=== PATIENT | female | born 1960 | race Caucasian/White ===

== ENCOUNTER 2023-04-13 06:25 | Outpatient (OUT) | payer BC, SELFPAY ==
[2023-04-13 06:31] LABS: Basophils Percent Auto 0.6 % (0.2-2.0); Eosinophils Absolute Auto 0.1 10^3/uL (0.0-0.7); Eosinophils Percent Auto 2.5 % (0.9-7.0); Hematocrit 42.3 % (36.0-48.0); Immature Granulocytes Abs Auto 0.01 10^3/uL (0.00-0.03); Immature Granulocytes Pct Auto 0.2 % (0.0-0.5); Lymphocytes Absolute Auto 1.7 10^3/uL (1.2-3.8); Lymphocytes Percent Auto 33.3 % (20.5-60.0); Mean Corpuscular HGB Conc 33.1 g/dL (29.9-35.2); Mean Corpuscular Hemoglobin 30.6 pg (26.7-34.0); Mean Corpuscular Volume 92.6 fL (81.0-99.0); Mean Platelet Volume 9.8 fL (9.5-13.5); Monocytes Absolute Auto 0.4 10^3/uL (0.3-0.8); Monocytes Percent Auto 8.5 % (1.7-12.0); Neutrophils Absolute Auto 2.8 10^3/uL (1.4-6.5); Neutrophils Percent Auto 54.9 % (43.0-75.0); Platelet Count 223 10^3/uL (150-450); Red Blood Count 4.57 10^6/uL (4.20-5.40); Red Cell Distribution Width 12.5 % (11.0-15.0); White Blood Count 5.2 10^3/uL (4.0-11.0)
[2023-04-13 06:47] LABS: Estimated Average Glucose 114 mg/dL; Glycohemoglobin A1C 5.6 % (4.5-6.2)
[2023-04-13 07:03] LABS: Alanine Aminotransferase 46 U/L (14-59); Albumin Globulin Ratio 1.1; Albumin Level 3.8 g/dL (3.4-5.0); Alkaline Phosphatase 46 U/L (46-116); Anion Gap 11.4; Aspartate Amino Transferase 27 U/L (15-37); BUN Creatinine Ratio 31.1; Bilirubin Total 0.4 mg/dL (0.2-1.0); Calcium 9.2 mg/dL (8.5-10.1); Carbon Dioxide 28.8 mmol/L (21.0-32.0); Chloride 104 mmol/L (98-107); Chol HDL Ratio 2.1; Cholesterol 159 mg/dL (<=200); Estimated GFR (African America >60 (>=60); Estimated GFR (Non-African Ame >60 (>=60); Globulin 3.4 g/dL; Glucose 110 mg/dL (74-106); HDL Cholesterol 76 mg/dL (40-60); Potassium 4.2 mmol/L (3.5-5.1); Sodium 140 mmol/L (136-145); Thyroid Stimulating Hormone 1.478 uIU/mL (0.358-3.740); Total Protein 7.2 g/dL (6.4-8.2); Triglycerides 37 mg/dL (<=150); VLDL CHOLESTEROL 7.4 mg/dL
== END 2023-04-13 06:26 | disposition home or self-care (01) ==
LOC: LAB 06:25
PROVIDERS: PCP Internal Medicine; Visit Provider Internal Medicine
DX: Z00.00 Encounter for general adult medical examination without abnormal findings (principal)
CPT/HCPCS: 36415; 80053; 80061; 83036; 84443; 85025

== ENCOUNTER 2023-05-15 21:59 | Outpatient (REF) | payer BC, SELFPAY ==
[2023-05-19 09:13] LABS: Age Gdln ACOG Testing Note (.); HPV Aptima Negative (Negative); IGP, Aptima HPV, rfx 16/18,45 Note (.)
== END 2023-05-15 22:00 | disposition home or self-care (01) ==
LOC: LAB 21:59
PROVIDERS: PCP Internal Medicine; Visit Provider Obstetrics & Gynecology
DX: Z01.419 Encounter for gynecological examination (general) (routine) without abnormal findings (principal)
CPT/HCPCS: 87624; G0145

== ENCOUNTER 2024-02-26 05:54 | Outpatient (OUT) | payer BC, SELFPAY ==
[2024-02-26 06:57] LABS: Basophils Absolute Auto 0.1 10^3/uL (0.0-0.1); Basophils Percent Auto 1.1 % (0.2-2.0); Eosinophils Absolute Auto 0.1 10^3/uL (0.0-0.7); Eosinophils Percent Auto 2.6 % (0.9-7.0); Hematocrit 40.5 % (36.0-48.0); Hemoglobin 13.1 g/dL (12.0-16.0); Immature Granulocytes Abs Auto 0.01 10^3/uL (0.00-0.03); Immature Granulocytes Pct Auto 0.2 % (0.0-0.5); Lymphocytes Absolute Auto 1.5 10^3/uL (1.2-3.8); Lymphocytes Percent Auto 33.8 % (20.5-60.0); Mean Corpuscular HGB Conc 32.3 g/dL (29.9-35.2); Mean Corpuscular Hemoglobin 30.3 pg (26.7-34.0); Mean Corpuscular Volume 93.8 fL (81.0-99.0); Mean Platelet Volume 10.2 fL (9.5-13.5); Monocytes Absolute Auto 0.4 10^3/uL (0.3-0.8); Monocytes Percent Auto 8.8 % (1.7-12.0); Neutrophils Absolute Auto 2.4 10^3/uL (1.4-6.5); Neutrophils Percent Auto 53.5 % (43.0-75.0); Platelet Count 231 10^3/uL (150-450); Red Blood Count 4.32 10^6/uL (4.20-5.40); Red Cell Distribution Width 12.9 % (11.0-15.0); White Blood Count 4.6 10^3/uL (4.0-11.0)
[2024-02-26 07:26] LABS: Estimated Average Glucose 111 mg/dL; Glycohemoglobin A1C 5.5 % (4.5-6.2)
[2024-02-26 07:32] LABS: Alanine Aminotransferase 26 U/L (14-59); Albumin Level 3.3 g/dL (3.4-5.0); Alkaline Phosphatase 44 U/L (46-116); Anion Gap 10.4; Aspartate Amino Transferase 18 U/L (15-37); BUN Creatinine Ratio 22.8; Bilirubin Total 0.6 mg/dL (0.2-1.0); Calcium 8.6 mg/dL (8.5-10.1); Carbon Dioxide 30.3 mmol/L (21.0-32.0); Chloride 104 mmol/L (98-107); Chol HDL Ratio 3.5; Cholesterol 223 mg/dL (<=200); Estimated GFR (African America >60 (>=60); Estimated GFR (Non-African Ame >60 (>=60); Globulin 3.4 g/dL; Glucose 104 mg/dL (74-106); HDL Cholesterol 64 mg/dL (40-60); Potassium 3.7 mmol/L (3.5-5.1); Sodium 141 mmol/L (136-145); Total Protein 6.7 g/dL (6.4-8.2); Triglycerides 80 mg/dL (<=150)
--- NOTE | 2024-02-26 08:25 | MM_ITS ---
Patient Name: EUSEBIO SCHMITT MR#: [id number] : 1960 Exam Date: 02/26/2024 Ordering Doctor: SHAIKH Kathleen BRADFORD . RADIOLOGY REPORT PROCEDURE: MM TOMOSYNTHESIS SCREENING BI COMPARISON: MG MAMM SCREEN 3D [place] CAD, 02/14/2023. MG MAMM SCREEN 3D [place] CAD, 03/02/2022. MG MAMM SCREEN 3D [place] CAD, 02/16/2021. MG MAMM [facility] SCRN W CAD DIG, 12/11/2013. INDICATIONS: Screening Calculator Name NCI Breast Cancer Risk Assessment Tool 5 Year Breast Cancer Risk 1.60% Lifetime Breast Cancer Risk 7.90% Personal Breast Cancer No Personal Ovarian Cancer No Treatments None Family Cancers Aunt-maternal with breast cancer at age 52; Mother with ureter cancer at age 50. LOCATION: [facility] BREAST COMPOSITION: There are scattered areas of fibroglandular density. FINDINGS: DIAGNOSTIC CATEGORY 1--NEGATIVE. RIGHT BREAST: No significant suspicious finding. No significant change has occurred. LEFT BREAST: No significant suspicious finding. No significant change has occurred. RECOMMENDATIONS: ROUTINE MAMMOGRAM AND CLINICAL EVALUATION IN 12 MONTHS. PLEASE NOTE: A NORMAL MAMMOGRAM DOES NOT EXCLUDE THE POSSIBILITY OF BREAST CANCER. A CLINICALLY SUSPICIOUS PALPABLE LUMP SHOULD BE BIOPSIED. Dictated by: Isra Norman M.D. on 02/29/2024 at 13:21 Approved by: Isra Norman M.D. on 02/29/2024 at 13:24
== END 2024-02-26 05:55 | disposition home or self-care (01) ==
PROVIDERS: PCP Internal Medicine; Visit Provider Internal Medicine
DX: Z00.00 Encounter for general adult medical examination without abnormal findings (principal); Z12.31 Encounter for screening mammogram for malignant neoplasm of breast; Z80.3 Family history of malignant neoplasm of breast; Z80.8 Family history of malignant neoplasm of other organs or systems
CPT/HCPCS: 36415; 77063; 77067; 80053; 80061; 83036; 85025

== ENCOUNTER 2024-05-20 20:33 | Outpatient (REF) | payer BC, SELFPAY ==
--- OUTSIDE RECORDS SUMMARY | 2024-05-20 20:36 | XMS_ITS | CCD ---
Author Organization [facility] Care Team Providers Care Investment Manager Name Role Phone WILLIAM ., DR SPRING Admitting Unavailable WILLIAM ., DR SPRING Attending Unavailable REED ., DR SALVADOR Pfeiffer Primary Care Unavailable REED ., DR SALVADOR Pfeiffer Admitting Unavailable REED ., DR SALVADOR Pfeiffer Attending Unavailable REED ., DR SALVADOR Pfeiffer Primary Care Unavailable REED ., DR SALVADOR Pfeiffer Consulting Unavailable REED ., DR SALVADOR Pfeiffer Admitting Unavailable REED ., DR SALVADOR Pfeiffer Attending Unavailable REED ., DR SALVADOR Pfeiffer Primary Care Unavailable REED ., DR SALVADOR Pfeiffer Consulting Unavailable REED ., DR SALVADOR Pfeiffer Admitting Unavailable REED ., DR SALVADOR Pfeiffer Attending Unavailable REED ., DR SALVADOR Pfeiffer Primary Care Unavailable REED ., DR SALVADOR Pfeiffer Consulting Unavailable GLADE [place], DR KELVIN Corral Consulting Unavailable WILLIAM ., DR SPRING Admitting Unavailable WILLIAM ., DR SPRING Attending Unavailable REED ., DR SALVADOR Pfeiffer Primary Care Unavailable WILLIAM ., DR SPRING Consulting Unavailable Allergies Allergy Classification Reported Allergen(s) Allergy Type Date of Onset Reaction(s) Facility (2 sources) Cefaclor Drug Allergy [facility] Repository Problems Active Problems Problem Classification Problem Date Documented Date Episodic/Chronic Disorders of lipid metabolism (4 sources) Pure hypercholesterolemia, unspecified; Translations: [PURE HYPERCHOLESTEROLEMIA UNSPEC] Onset: 2 Chronic Past or Other Problems Problem Classification Problem Date Documented Date Episodic/Chronic Immunizations and screening for infectious disease (1 source) Encounter for screening for human papillomavirus (HPV); Translations: [ENC SCREENING HUMAN PAPILLOMAVIRUS] Onset: 05-10-2022 Episodic Other screening for suspected conditions (not mental disorders or infectious disease) (5 sources) Encounter for screening for malignant neoplasm of cervix; Translations: [Encounter for screening mammogram for malignant neoplasm of breast] Onset: 03-05-2022 Episodic Residual codes; unclassified (1 source) Family history of malignant neoplasm of breast; Translations: [FAMILY HX MALIG NEOPLASM OF BREAST] Onset: 03-05-2022 Episodic Residual codes; unclassified (1 source) Family history of malignant neoplasm of other genital organs; Translations: [FAM HX MUSTAPHA NEOPLSM OTH GENIT ORGN] Onset: 03-05-2022 Episodic Urinary tract infections (4 sources) Urinary tract infection, site not specified; Translations: [UTI SITE NOT SPECIFIED] Onset: 07-13-2022 Episodic Results Test Name Value Interpretation Reference Range Facility CULTURE URINEon 07-15-2022 CULTURE URINE Isolate 1 Staphylococcus epidermidis >100,000 cfu/mL of ORGANISM 1 Staphylococcus epidermidis ANTIBIOTIC M.I.C RX STATUS Beta-Lactamase Neg NEG F Benzylpenicillin >=0.5 R F Gentamicin <=0.5 S F Ciprofloxacin <=0.5 S F Levofloxacin <=0.12 S F Quinupristin/Dalfopri stin <=0.25 S F Linezolid 1 S F Vancomycin 1 S F Tetracycline >=16 R F Nitrofurantoin <=16 S F Rifampicin <=0.5 S F Trimethoprim/Sulfamet hoxazole <=10 S F Oxacillin <=0.25 S F Normal [facility] Comment on above: Performed By: #### U RCX #### [facility] [address] [place] [address] Dr. El Voss LIPID PROFILEon 06-01-2022 CHOL-HDL RATIO NORM SEE BELOW Normal [facility] Comment on above: Result Comment: 3.3 - 4.4 LOW RISK 4.4 - 7.1 AVERAGE RISK 7.1 - 11.0 MODERATE RISK >11.0 HIGH RISK Performed By: #### L IPID, AST #### [facility] [address] [address] [address] El Voss Cholesterol [Mass/Vol] 159 mg/dL Normal <=200 [facility] Comment on above: Performed By: #### L IPID, AST #### [facility] [address] [address] [address] El Voss Cholesterol in HDL [Mass/Vol] 71 mg/dL Critically high 40-60 [facility] Comment on above: Performed By: #### L IPID, AST #### [facility] [address] [address] [address] El Voss Cholesterol in LDL [Mass/Vol] 76.2 mg/dL Normal [facility] Comment on above: Performed By: #### L IPID, AST #### [facility] [address] [address] [address] El Voss Cholesterol.total/Cho lesterol in HDL [Mass ratio] 2.2 {ratio} Normal [facility] Comment on above: Performed By: #### L IPID, AST #### [facility] [address] [address] [address] El Voss HDL NORMAL > or = 60 mg/dl - LO W CARDIOVASCULAR RISK <40 mg/dl - HIGH CARDIOVASCULAR RISK Normal [facility] Comment on above: Performed By: #### L IPID, AST #### [facility] [address] [place] [address] Dr. El Voss LDL CALC NORMAL SEE BELOW Normal [facility] Comment on above: Result Comment: <100 mg/dl OPTIMAL 100 - 129 mg/dl NEAR OR ABOVE OPTIMAL 130 - 159 mg/dl BORDERLINE HIGH 160 - 189 mg/dl HIGH >190 mg/dl VERY HIGH Performed By: #### L IPID, AST #### [facility] [address] [place] [address] Dr. El Voss Triglyceride [Mass/Vol] 59 mg/dL Normal <=150 [facility] Comment on above: Performed By: #### L IPID, AST #### [facility] [address] [address] [address] El Voss VLDL CALC 11.8 mg/dL Normal [facility] Comment on above: Performed By: #### L IPID, AST #### [facility] [address] [address] [address] El Voss SGMgn 06-01-2022 AST [Catalytic activity/Vol] 16 U/L Normal 15-37 [facility] Comment on above: Performed By: #### L IPID, AST #### [facility] [address] [place] [address] Dr. El Voss PAP ACOG PANEL 2: 30 to 65on 05-13-2022 . . Normal [facility] Comment on above: Result Comment: Perf ormed at: WB Performed By: #### [id number] #### [facility] [address] [address] [address] El Voss Age Gdln ACOG Testing 30-65 [facility] Comment on above: Performed By: #### [id number] #### [facility] [address] [address] [address] El Voss DIAGNOSIS: Comment Normal [facility] Comment on above: Result Comment: NEGA TIVE FOR INTRAEPITHELIAL LESION OR MALIGNANCY. Performed at: WB Performed By: #### [id number] #### [facility] [address] [address] [address] El Voss HPV Aptima Negative Normal Negative [facility] Comment on above: Result Comment: This nucleic acid amplification test detects fourteen high-risk HPV types (16,18,31,33,35,39,45,51,52,56,58,59,66,68) without differentiation. Performed at: =G Performed By: #### [id number] #### [facility] [address] [place] [address] Dr. El Voss Methodology: Comment [facility] Comment on above: Result Comment: This liquid based ThinPrep(R) pap test was screened with the use of an image guided system. Performed at: WB Performed By: #### [id number] #### [facility] [address] [address] [address] El Voss Note: Comment [facility] Comment on above: Result Comment: The Pap smear is a screening test designed to aid in the detection of premalignant and malignant conditions of the uterine cervix. It is not a diagnostic procedure and should not be used as the sole means of detecting cervical cancer. Both false-positive and false-negative reports do occur. . Performed at: WB Performed By: #### [id number] #### [facility] [address] [address] [address] El Voss Performed by: Comment Normal [facility] Comment on above: Result Comment: Dee Cui, Power Plant Operator (ASCP) Performed at: WB Performed By: #### [id number] #### [facility] [address], [place] [address] Dr. El Voss Specimen adequacy: Comment Normal [facility] Comment on above: Result Comment: Sati sfactory for evaluation. Endocervical and/or squamous metaplastic cells (endocervical component) are present. Performed at: WB Performed By: #### [id number] #### [facility] [address], [place] [address] Dr. El Voss MG MAMM SCREEN 3D EVENS CADon 03-02-2022 MG MAMM SCREEN 3D EVENS CAD Patient: EUSEBIO SCHMITT Exam Date: 03/02/2022 : 1960 Gender:F Ordering : DR SALVADOR REED . Admission #: [id number] Family : Order #: [id number] CLICK HERE TO VIEW EXAM RADIOLOGY REPORT PROCEDURE: MAMMOGRAM SCREENING 3D BILATERAL CAD COMPARISON: MG MAMM SCREEN 3D EVENS CAD, 02/16/2021. MG MAMM SCREEN EVENS W CAD, 02/18/2020. INDICATIONS: Screening mammography Calculator Name NCI Breast Cancer Risk Assessment Tool 5 Year Breast Cancer Risk 1.50% Lifetime Breast Cancer Risk 8.30% Personal Breast Cancer No Personal Ovarian Cancer No Treatments None Family Cancers Aunt-maternal with breast cancer at age 52; Mother with ureter cancer at age 50. LOCATION: [facility] BREAST COMPOSITION: Scattered areas fibroglandular density. FINDINGS: DIAGNOSTIC CATEGORY 1--NEGATIVE. NO CHANGE FROM COMPARISON ASSESSMENT. Scattered benign-appearing calcifications are present. Scattered benign-appearing lymph nodes are present. RIGHT BREAST: No significant suspicious finding. LEFT BREAST: No significant suspicious finding. RECOMMENDATIONS: ROUTINE MAMMOGRAM AND CLINICAL EVALUATION IN 12 MONTHS. PLEASE NOTE: A NORMAL MAMMOGRAM DOES NOT EXCLUDE THE POSSIBILITY OF BREAST CANCER. A CLINICALLY SUSPICIOUS PALPABLE LUMP SHOULD BE BIOPSIED. Dictated by: Kelvin Zayas MD on 03/02/2022 at 10:17 Approved by: Kelvin Zayas MD on 03/02/2022 at 10:18 Normal [facility] CBC AUTO DIFFon 03-01-2022 BASO # 0.1 103/ul Normal 0.0-0.1 [facility] Comment on above: Performed By: #### D ATCBC #### [facility] [address] [place] [address] Dr. El Voss Basophils/100 WBC (Bld) 1.1 % Normal 0.2-2.0 [facility] Comment on above: Performed By: #### D ATCBC #### [facility] [address] [place] [address] Dr. El Voss EO # 0.1 103/ul Normal 0.0-0.7 [facility] Comment on above: Performed By: #### D ATCBC #### [facility] [address] [place] [address] Dr. El Voss Eosinophils/100 WBC (Bld) 2.6 % Normal 0.9-7.0 [facility] Comment on above: Performed By: #### D ATCBC #### [facility] [address] [place] [address] Dr. El Voss Erythrocyte distribution width (RBC) [Ratio] 12.7 % Normal 11.0-15.0 [facility] Comment on above: Performed By: #### D ATCBC #### [facility] [address] [place] [address] Dr. El Voss Hematocrit (Bld) [Volume fraction] 42.8 % Normal 36.0-48.0 [facility] Comment on above: Performed By: #### D ATCBC #### [facility] [address] [place] [address] Dr. El Voss Hemoglobin (Bld) [Mass/Vol] 13.8 g/dL Normal 12.0-16.0 [facility] Comment on above: Performed By: #### D ATCBC #### [facility] [address] [place] [address] Dr. El Voss IG # 0.01 10e3/ul Normal 0.00-0.03 [facility] Comment on above: Performed By: #### D ATCBC #### [facility] [address] [place] [address] Dr. El Voss IG % 0.2 % Normal 0.0-0.5 [facility] Comment on above: Performed By: #### D ATCBC #### [facility] [address] [place] [address] Dr. El Voss LYMPH # 1.9 103/ul Normal 1.2-3.8 [facility] Comment on above: Performed By: #### D ATCBC #### [facility] [address] [place] [address] Dr. El Voss Lymphocytes/100 WBC (Bld) 40.4 % Normal 20.5-60.0 [facility] Comment on above: Performed By: #### D ATCBC #### [facility] [address] [place] [address] Dr. El Voss MCH (RBC) [Entitic mass] 30.3 pg Normal 26.7-34.0 [facility] Comment on above: Performed By: #### D ATCBC #### [facility] [address] [place] [address] Dr. El Voss MCHC (RBC) [Mass/Vol] 32.2 g/dL Normal 29.9-35.2 [facility] Comment on above: Performed By: #### D ATCBC #### [facility] [address] [place] [address] Dr. El Voss MCV (RBC) [Entitic vol] 93.9 fL Normal 81.0-99.0 [facility] Comment on above: Performed By: #### D ATCBC #### [facility] [address] [place] [address] Dr. El Voss MONO # 0.4 103/ul Normal 0.3-0.8 [facility] Comment on above: Performed By: #### D ATCBC #### [facility] [address] [place] [address] Dr. El Voss Monocytes/100 WBC (Bld) 8.2 % Normal 1.7-12.0 [facility] Comment on above: Performed By: #### D ATCBC #### [facility] [address] [place] [address] Dr. El Voss NEUT # 2.2 103/ul Normal 1.4-6.5 [facility] Comment on above: Performed By: #### D ATCBC #### [facility] [address] [place] [address] Dr. El Voss Neutrophils/100 WBC (Bld) 47.5 % Normal 43.0-75.0 [facility] Comment on above: Performed By: #### D ATCBC #### [facility] [address] [place] [address] Dr. El Voss Platelet mean volume (Bld) [Entitic vol] 9.9 fL Normal 9.5-13.5 [facility] Comment on above: Performed By: #### D ATCBC #### [facility] [address] [place] [address] Dr. El Voss PLT 226 103/ul Normal 150-450 [facility] Comment on above: Performed By: #### D ATCBC #### [facility] [address] [place] [address] Dr. El Voss RBC 4.56 106/ul Normal 4.20-5.40 [facility] Comment on above: Performed By: #### D ATCBC #### [facility] [address] [place] [address] Dr. El Voss WBC 4.7 103/ul Normal 4.0-11.0 [facility] Comment on above: Performed By: #### D ATCBC #### [facility] [address] [place] [address] Dr. El Voss JONATAN - LIPID PROFILEon 2021 CHOL-HDL RATIO NORM SEE BELOW Normal [facility] Comment on above: Result Comment: 3.3 - 4.4 LOW RISK 4.4 - 7.1 AVERAGE RISK 7.1 - 11.0 MODERATE RISK >11.0 HIGH RISK Performed By: #### D ATLIPI, DATBMP #### [facility] [address] [place] [address] Dr. El Voss Cholesterol.total/Cho lesterol in HDL [Mass ratio] 3.5 {ratio} Normal [facility] Comment on above: Performed By: #### D SERGIO DATBMP #### [facility] [address] [address] [address] El Voss JONATAN- BMP WITH LIPIDon 2021 Anion gap [Moles/Vol] 13.6 mmol/L Normal [facility] Comment on above: Performed By: #### D SERGIO DATBMP #### [facility] [address] [place] [address] Dr. El Voss Calcium [Mass/Vol] 9.0 mg/dL Normal 8.5-10.1 [facility] Comment on above: Performed By: #### D SERGIO DATBMP #### [facility] [address] [place] [address] Dr. El Voss Chloride [Moles/Vol] 105 mmol/L Normal 98-107 [facility] Comment on above: Performed By: #### Kenneth HILL DATBMP #### [facility] [address] [place] [address] Dr. El Voss Cholesterol [Mass/Vol] 259 mg/dL Critically high <=200 [facility] Comment on above: Performed By: #### D SERGIO DATBMP #### [facility] [address] [place] [address] Dr. El Voss Cholesterol in HDL [Mass/Vol] 73 mg/dL Critically high 40-60 [facility] Comment on above: Performed By: #### Kenneth HILL DATBMP #### [facility] [address] [place] [address] Dr. El Voss Cholesterol in LDL [Mass/Vol] 174.0 mg/dL Normal [facility] Comment on above: Performed By: #### D SERGIO DATBMP #### [facility] [address] [place] [address] Dr. El Voss CO2 [Moles/Vol] 27.4 mmol/L Normal 21.0-32.0 [facility] Comment on above: Performed By: #### D SERGIO DATBMP #### [facility] [address] [address] [address] El Voss Creatinine [Mass/Vol] 0.75 mg/dL Normal 0.55-1.02 [facility] Comment on above: Performed By: #### D SERGIO DATBMP #### [facility] [address] [address] [address] El Voss EGFR-AF JAPANESE >60 Normal >=60 [facility] Comment on above: Performed By: #### D SERGIO DATBMP #### [facility] [address] [address] [address] El Voss EGFR-NON AF JAPANESE >60 Normal >=60 [facility] Comment on above: Performed By: #### D SERGIO DATBMP #### [facility] [address] [address] [address] El Voss Glucose [Mass/Vol] 110 mg/dL Critically high 74-106 [facility] Comment on above: Performed By: #### D SERGIO DATBMP #### [facility] [address] [address] [address] El Voss HDL NORMAL > or = 60 mg/dl - LO W CARDIOVASCULAR RISK <40 mg/dl - HIGH CARDIOVASCULAR RISK Normal [facility] Comment on above: Performed By: #### D SERGIO DATBMP #### [facility] [address] [address] [address] El Voss LDL CALC NORMAL SEE BELOW Normal [facility] Comment on above: Result Comment: <100 mg/dl OPTIMAL 100 - 129 mg/dl NEAR OR ABOVE OPTIMAL 130 - 159 mg/dl BORDERLINE HIGH 160 - 189 mg/dl HIGH >190 mg/dl VERY HIGH Performed By: #### D SERGIO DATBMP #### [facility] [address] [address] [address] El Voss Potassium [Moles/Vol] 4.0 mmol/L Normal 3.5-5.1 [facility] Comment on above: Performed By: #### D SERGIO DATBMP #### [facility] [address] [address] [address] El Voss Sodium [Moles/Vol] 142 mmol/L Normal 136-145 [facility] Comment on above: Performed By: #### D JONATAN HILLBMP #### [facility] [address] [address] [address] El Voss Triglyceride [Mass/Vol] 60 mg/dL Normal <=150 [facility] Comment on above: Performed By: #### Kenneth HILL DATBMP #### [facility] [address] [address] [address] El Voss Urea nitrogen [Mass/Vol] 18.0 mg/dL Normal 7.0-18.0 [facility] Comment on above: Performed By: #### Kenneth HILL DATBMP #### [facility] [address] [address] [address] El Voss Urea nitrogen/Creatinine [Mass ratio] 24.0 mg/mg Normal [facility] Comment on above: Performed By: #### Kenneth HILL DATBMP #### [facility] [address] [address] [address] El Voss VLDL CALC 12.0 mg/dL Normal [facility] Comment on above: Performed By: #### KADEN GRAYSONP #### [facility] [address] [address] [address] El Voss GLYCOHEMOGLOBIN A1Con 2021 ADA RECOMMENDATION SEE BELOW Normal [facility] Comment on above: Result Comment: ADA RECOMMENDED LIMIT 4.0 - 6.0 ADA THERAPEUTIC TARGET < 7.0 ACTION SUGGESTED > 7.0 Performed By: #### D ATA1C #### [facility] [address] [address] [address] El Voss Glucose [Mass/Vol] 111 mg/dL Normal [facility] Comment on above: Performed By: #### D ATA1C #### [facility] [address] [address] [address] El Voss HbA1c (Bld) [Mass fraction] 5.5 % Normal 4.5-6.2 [facility] Comment on above: Performed By: #### D ATA1C #### [facility] [address] [address] [address] El Voss TSHon 03-01-2022 TSH 3.641 uIU/mL Normal 0.358-3.740 [facility] Comment on above: Performed By: #### T SH #### [facility] [address] [address] [address] El Voss TSH RANGE SEE BELOW Normal [facility] Comment on above: Result Comment: <0.3 4 UIU/ml HYPERTHYROID 0.34-5.60 UIU/ml EUTHYROID >5.60 UIU/ml HYPOTHYROID Performed By: #### T SH #### [facility] [address] [address] [address] El Voss Encounters Encounter Date Encounter Type Care Provider Facility Start: 02-14-[address] CLEMENTINE THOMAS . Facili ty:[facility] Start: 07-13-2022 End: 07-14-[address] SALVADOR REED . Facility:[facility] Start: 06-01-2022 End: 06-02-[address] SALVADOR REED . Facility:[facility] Start: 05-09-2022 End: 05-09-[address] CLEMENTINE THOMAS . Facility:[facility] Start: 03-05-2022 Encounter for genera l adult medical examination without abnormal findings DR SALVADOR REED . [facility] Start: 03-02-2022 End: 03-03-[address] SALVADOR REED . Facility:[facility] Start: 03-02-2022 End: 03-03-2022 Encounter for general adult medical examination without abnormal findings DR SALVADOR REED . Facility:[facility] Payers Date Payer Category Payer Unknown [id number] 2019 Unknown [id number] 1960 Unknown [id number] 2.16.84 [id number] 1960 Unknown [id number] 2.16.84 [id number] 1960 Unknown [id number] 2.16.84 [id number] 1960 Unknown [id number] 2.16.84 [id number] 1960 Unknown [id number] 2.16.84 [id number] Summary Purpose Family History No Family History Records Found Advance Directives No Advanced Directives Records Found Additional Source Comments INFORMATION SOURCE (unrecogn ized section and content) DATE CREATED AUTHOR 02/06/2023 [facility] FOR RECORDS PERTAINING TO PATIENTS WHO ARE OR HAVE BEEN ENROLLED IN A CHEMICAL DEPENDENCY/SUBSTANCEABUSE PROGRAM, SOME INFORMATION MAY BE OMITTED. This clinical summary was aggregated from multiple sources. Caution should be exercised in using it in the provision of clinical care. This summary normalizes information from multiple sources, and as a consequence, information in this document may materially change the coding, format and clinical context of patient data. In addition, data may be omitted in some cases. CLINICAL DECISIONS SHOULD BE BASED ON THE PRIMARY CLINICAL RECORDS. [facility] [employer] [facility]. provides no warranty or guarantee of the accuracy or completeness of information in this document.
== END 2024-05-20 20:34 | disposition home or self-care (01) ==
LOC: LAB 20:33
PROVIDERS: PCP Internal Medicine; Visit Provider Obstetrics & Gynecology
DX: Z01.419 Encounter for gynecological examination (general) (routine) without abnormal findings (principal)
CPT/HCPCS: 87624; 88175

== ENCOUNTER 2025-03-03 13:55 | Outpatient (OUT) | payer BC, SELFPAY ==
--- OUTSIDE RECORDS SUMMARY | 2025-03-03 13:57 | XMS_ITS | Encounter Summary ---
Author Organization [facility] Address [address] [place] [address] Care Team Providers Care .Net Architect Name Role Phone Shaikh AURELIANO Bateman Primary Care Provider [phone] Encounter Details Date Type Department Care Team (Late Contact Info) Description 05/20/2024 Abstract [facility] [address] [place] [address] Triston Rob, DO [address], [place] [address] Social History Tobacco Use Types Packs/Day Years Used Date Smoking Tobacco: Never Smokeless Tobacco: Never Alcohol Use Standard Drinks/Week Comments Yes 0 (1 standard drink = 0.6 oz pur e alcohol) Occasional Alcohol use Comments Unknown Sex and Gender Information Value Date Recorded Sex Assigned at Female 05/08/2023 10:18 AM EDT Legal Sex Female 6:38 PM EDT Gender Identity Female 05/08/2023 10:18 AM EDT Sexual Orientation Not on file documented as of this encounter Plan of Treatment Upcoming Encounters Date Type Department Care Team (Late Contact Info) Description 05/21/2025 3:00 PM EDT Office Visit [facility] [address] [place] [address] Triston Rob, DO [address], [facility]11 documented as of this encounter Visit Diagnoses Not on filedocumented in this encounter Care Teams .Net Architect Relationship Specialty Start Date End Date Shaikh Bateman MD [address] [place] [address] PCP - General 05/08/23 documented as of this encounter
--- OUTSIDE RECORDS SUMMARY | 2025-03-03 13:57 | XMS_ITS | Encounter Summary ---
Author Organization [facility] Address [address] [place] [address] Care Team Providers Care Summons Server Name Role Phone Shaikh AURELIANO Bateman Primary Care Provider [phone] Encounter Details Date Type Department Care Team (Late Contact Info) Description 05/30/2024 Orders Only [facility] [address] [facility] [place] [address] Shannon Lennon LPN [address] [facility] [address] [place] [place] [address] Social History Tobacco Use Types Packs/Day Years [...] 05/21/2025 3:00 PM EDT Office Visit [facility] [address] [facility] [place] [address] Triston Rob, DO [address] [facility] [address] [place], [facility]11 documented as of this encounter Procedures Procedure Name Priority Date/Time Associated Diagnosis Comments PAP SMEAR Routine 05/20/2024 12:00 AM EDT documented in this encounter Results * Pap Smear (05/20/2024 12:00 AM EDT) Swab Cervical swab / Unknown us [facility] Darron Nurse LAB CYTOLOGY ORDERABLES Final Result EXTERNAL LAB documented in this encounter Visit Diagnoses Not on filedocumented in this encounter Care Teams Summons Server Relationship Specialty Start Date End Date Shaikh Bateman MD [address] [place] [address] PCP - General 05/08/23 documented as of this encounter
--- OUTSIDE RECORDS SUMMARY | 2025-03-03 13:57 | XMS_ITS | Clinical Summary ---
Author Organization [facility] Address [address] [place] [address] Care Team Providers Care Director Orange Name Role Phone Shaikh AURELIANO Bateman Primary Care Provider [phone] Allergies Active Allergy Reactions Criticality Noted Date Comments Cefaclor Unknown 05/15/2023 Sulfa Antibiotics Hives,Unknown 05/15/2023 Medications B Cacypdq-Oozukq-OC (BALANCED B COMPLEX PO) Active Cholecalciferol (D3 1999 PO) Active ezetimibe (Zetia) 10 MG tabletIndications:H yperlipidemia, unspecified hyperlipidemia type (CMS/HCC) Take 1 tablet (10 mg) by mouth Daily 90 tablet 1 4 03/10/20 25 Active Active Problems Problem Noted Date Diagnosed Date Encounter for wellness examination in adult 11/2024 Encounters Date Type Department Care Team Description 02/25/2025 Orders Only [facility] [address] [place] [address] Sylvia Yousif NP Encounter for wellness examination in adult (Primary Dx) 02/25/2025 Telephone [facility] [address] [place] [address] Sylvia Yousif NP from Last 3 Months Family History Medical History Relation Name Comments Hypertension Father Cancer Mother Heart disease Mother Relation Name Status Comments Brother (1) Daughter 1 Alive Daughter 2 Alive Daughter 3 Alive Father Mother Sister (1) Son Alive Social History Tobacco Use Types Packs/Day Years Used Date Smoking Tobacco: Never Smokeless Tobacco: Never Tobacco Cessation:Counseling Given: Not Answered Alcohol Use Standard Drinks/Week Comments Yes 0 (1 standard drink = 0.6 oz pur e alcohol) Occasional Alcohol use Comments Unknown Sex and Gender Information Value Date Recorded Sex Assigned at Female 05/08/2023 10:18 AM EDT Legal Sex Female 6:38 PM EDT Gender Identity Female 05/08/2023 10:18 AM EDT Sexual Orientation Not on file Last Filed Vital Signs Vital Sign Reading Time Taken Comments Blood Pressure 114/70 05/20/2024 2:34 PM EDT Pulse - - Temperature - - Respiratory Rate - - Oxygen Saturation - - Inhaled Oxygen Concentration - - Weight 67.6 kg (149 lb 1.9 oz) 05/20/2024 2:34 P M EDT Height 162.6 cm (5' 4 ) 04/02/2019 12:00 PM EDT Body Mass Index 25.6 04/02/2019 12:00 PM EDT Plan of Treatment Upcoming Encounters Date Type Department Care Team (Late st Contact Info) Description 05/21/2025 3:00 PM EDT Office Visit [facility] [address] [facility] [place] [address] Triston Rob, DO [address] [facility] [address], [facility]11 Insurance BS Care Teams Director Orange Relationship Specialty Start Date End Date Shaikh Bateman MD [address] [place] [address] PCP - General 05/08/23
--- OUTSIDE RECORDS SUMMARY | 2025-03-03 13:57 | XMS_ITS | Encounter Summary ---
Author Organization [facility] Address [address] [place] [address] Care Team Providers Care Manager Erp Name Role Phone Shaikh AURELIANO Bateman Primary Care Provider [phone] Encounter Details Date Type Department Care Team (Late st Contact Info) Description 02/25/2025 Telephone [facility] [address] [place] [address] Sylvia Yousif, CAREN [address] [place] [address] Social History Tobacco Use Types Packs/Day Years [...] on file documented as of this encounter Miscellaneous Notes * Telephone Encounter - KASSI WONG - 02/25/2025 11:54 AM EDT Text Human Resources Assistant Yeah, this is Oanh Lainez. I was a patient of Fiordaliza Curry and I have not been to her since she is left, but I have wellness labs that I need to get done through the [facility]. 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 My information should be there. But like I said, I have not seen anybody since Fiordaliza Curry, so I think she could let me know and call me back at [phone] or leave a message that The order has been sent. And if not, I can also pick it up. omar Napoles. documented in this encounter Plan of Treatment Upcoming Encounters Date Type Department Care Team (Late st Contact Info) Description 05/21/2025 3:00 PM EDT Office Visit [facility] [address] [facility] [place] [address] Triston Rob, DO [address] [place] [address] documented as of this encounter Visit Diagnoses Not on filedocumented in this encounter Care Teams Manager Erp Relationship Specialty Start Date End Date Shaikh Bateman MD [address] [place] [address] PCP - General 05/08/23 documented as of this encounter
--- OUTSIDE RECORDS SUMMARY | 2025-03-03 13:57 | XMS_ITS | Encounter Summary ---
Author Organization [facility] Address [address] [place] [address] Care Team Providers Care Vp Medical Name Role Phone Shaikh AURELIANO Bateman Primary Care Provider [phone] Encounter Details Date Type Department Care Team (Late st Contact Info) Description 02/29/2024 Clinisync Result Encounter [facility] External Department Unsolicited Shaikh Bateman MD [address] [place] [address] Social History Tobacco Use Types Packs/Day Years [...] 05/21/2025 3:00 PM EDT Office Visit [facility] [address] [facility] [address] Triston Rob DO [address], [place] [id number] documented as of this encounter Procedures Procedure Name Priority Date/Time Associated Diagnosis Comments MM TOMOSYNTHESIS SCREENING BI 02/29/2024 1:24 PM EDT documented in this encounter Results * MM TOMOSYNTHESIS SCREENING BI (02/29/2024 1:24 PM EDT) Anatomical Region Laterality Modality Other 02/29/2024 1:24 PM EDT Narrative 02/29/2024 1:25 [place] [address] Mammography Report Signed Patient: OANH SCHMITT MR#: [id number] : 1960 Acct:[id number] Age/Sex: 63 / F ADM Date: 02/26/24 Loc: MAMMO Attending Dr: Shaikh Fransico Tirado Ordering Physician: Shaikh Candida Bateman Results: Date of Service: 02/26/24 Follow Up: Procedure(s): MM tomosynthesis screening BI Accession Number(s): [id number] cc: Shaikh Candida Bateman Patient Name: OANH SCHMITT MR#: [id number] : 1960 Exam Date: 02/26/2024 Ordering Doctor: SHAIKH Kathleen BATEMAN . RADIOLOGY REPORT PROCEDURE: MM TOMOSYNTHESIS SCREENING BI COMPARISON: MG MAMM SCREEN 3D EVENS CAD, 02/14/2023. MG MAMM SCREEN 3D EVENS CAD, 03/02/2022. MG MAMM SCREEN 3D EVENS CAD, 02/16/2021. MG MAMM EVENS SCRN W CAD DIG, 12/11/2013. INDICATIONS: Screening Calculator Name NCI Breast Cancer Risk Assessment Tool 5 Year Breast Cancer Risk 1.60% Lifetime Breast Cancer Risk 7.90% Personal Breast Cancer No Personal Ovarian Cancer No Treatments None Family Cancers Aunt-maternal with breast cancer at age 52; Mother with ureter cancer at age 50. LOCATION: [facility] BREAST COMPOSITION: There are scattered areas of fibroglandular density. FINDINGS: DIAGNOSTIC CATEGORY 1--NEGATIVE. RIGHT BREAST: No significant suspicious finding. No significant change has occurred. LEFT BREAST: No significant suspicious finding. No significant change has occurred. RECOMMENDATIONS: ROUTINE MAMMOGRAM AND CLINICAL EVALUATION IN 12 MONTHS. PLEASE NOTE: A NORMAL MAMMOGRAM DOES NOT EXCLUDE THE POSSIBILITY OF BREAST CANCER. A CLINICALLY SUSPICIOUS PALPABLE LUMP SHOULD BE BIOPSIED. Dictated by: Isra Norman M.D. on 02/29/2024 at 13:21 Approved by: Isra Norman M.D. on 02/29/2024 at 13:24 Dictated By: Isra Norman M.D. Signed By: 02/29/24 1325 DD/ 1324 TD/TT: Data Warehouse Analyst: Procedure Note Radiology, Radiologist, MD - 02/29/2024 [place] [address] Mammography Report Signed Patient: OANH SCHMITT LMR#: [id number] : 1960cct:[id number] Age/Sex: 63 / FADM Date: 02/26/24 Loc: MAMMO Attending Dr: Shaikh Fransico Tirado Ordering Physician: Shaikh Candida BatemanResults: Date of Service: 02/26/24Follow Up: Procedure(s): MM tomosynthesis screening BI Accession Number(s): [id number] cc: Shaikh Candida Bateman Patient Name: OANH SCHMITT MR#: [id number] : 1960 Exam Date: 02/26/2024 Ordering Doctor: SHAIKH Kathleen BATEMAN . RADIOLOGY REPORT PROCEDURE: MM TOMOSYNTHESIS SCREENING BI COMPARISON: MG MAMM SCREEN 3D EVENS CAD, 02/14/2023. MG MAMM SCREEN 3DBIL CAD, 03/02/2022. MG MAMM SCREEN 3D EVENS CAD, 02/16/2021. MG MAMM EVENS SCRN WCAD DIG, 12/11/2013. INDICATIONS: Screening Calculator Name NCI Breast Cancer Risk Assessment Tool 5 Year Breast Cancer Risk 1.60% Lifetime Breast Cancer Risk 7.90% Personal Breast Cancer No Personal Ovarian Cancer No Treatments None Family Cancers Aunt-maternal with breast cancer at age 52; Mother with ureter cancer at age 50. LOCATION: [facility] BREAST COMPOSITION: There are scattered areas of fibroglandulardensity. FINDINGS: DIAGNOSTIC CATEGORY 1--NEGATIVE. RIGHT BREAST: No significant suspicious finding. No significant changehas occurred. LEFT BREAST: No significant suspicious finding. No significant changehas occurred. RECOMMENDATIONS: ROUTINE MAMMOGRAM AND CLINICAL EVALUATION IN 12 MONTHS. PLEASE NOTE: A NORMAL MAMMOGRAM DOES NOT EXCLUDE THE POSSIBILITY OFBREAST CANCER. A CLINICALLY SUSPICIOUS PALPABLE LUMP SHOULD BE BIOPSIED. Dictated by: Isra Norman M.D. on 02/29/2024 at 13:21 Approved by: Isra Norman M.D. on 02/29/2024 at 13:24 Dictated By: Isra Norman M.D. Signed By:02/29/24 1325 DD/ 1324 TD/TT: Data Warehouse Analyst: us Shaikh Fransico [facility] Final Result documented in this encounter Visit Diagnoses Not on filedocumented in this encounter Care Teams Vp Medical Relationship Specialty Start Date End Date Shaikh Bateman MD [address] [place] [address] PCP - General 05/08/23 documented as of this encounter
--- OUTSIDE RECORDS SUMMARY | 2025-03-03 13:57 | XMS_ITS | Encounter Summary ---
Author Organization [facility] Address [address] [place] [address] Care Team Providers Care Titrator Name Role Phone Shaikh AURELIANO Bateman Primary Care Provider [phone] Encounter Details Date Type Department Care Team (Late st Contact Info) Description 02/14/2023 Clinisync Result Encounter [facility] Triston Rob, DO [address], [place] [address] Social History Tobacco Use Types Packs/Day Years Used Date Smoking Tobacco: Never Assessed Comments Unknown Sex and Gender Information Value [...] EDT Office Visit [facility] [address] [place] [address] Triston Rob DO [address], [place] [phone] documented as of this encounter Procedures Procedure Name Priority Date/Time Associated Diagnosis Comments MG MAMM SCREEN 3D EVENS CAD 02/14/2023 9:31 AM EDT documented in this encounter Results * MG MAMM SCREEN 3D EVENS CAD (02/14/2023 9:31 AM EDT) Anatomical Region Laterality Modality Other 02/14/2023 9:31 AM EDT Narrative 02/14/2023 9:31 AM EDT Patient: OANH SCHMITT Exam Date: 02/14/2023 : 1960 Gender:F Ordering : DR TRISTON ROB . Admission #: [id number] Family : Order #: [id number] CLICK HERE TO VIEW EXAM RADIOLOGY REPORT PROCEDURE: MAMMOGRAM SCREENING 3D BILATERAL CAD COMPARISON: MG MAMM SCREEN 3D EVENS CAD, 03/02/2022. MG MAMM SCREEN 3D EVENS CAD, 02/16/2021. MG MAMM SCREEN EVENS W CAD, 02/18/2020. DIGITIZED_MAMMO, 10/27/2008. INDICATIONS: Screening mammography Calculator Name NCI Breast Cancer Risk Assessment Tool 5 Year Breast Cancer Risk 1.60% Lifetime Breast Cancer Risk 8.10% Personal Breast Cancer No Personal Ovarian Cancer No Treatments None Family Cancers Aunt-maternal with breast cancer at age 52; Mother with ureter cancer at age 50. LOCATION: [facility] BREAST COMPOSITION: Scattered areas fibroglandular density. FINDINGS: DIAGNOSTIC CATEGORY 1--NEGATIVE. RIGHT [...] BIOPSIED. Dictated by: Isra Norman M.D. on 02/15/2023 at 11:02 Approved by: Isra Norman M.D. on 02/15/2023 at 11:05 Procedure Note Radiology, Radiologist, - 02/15/2023 Patient: OANH SCHMITT Exam Date: 02/14/2023 : 1960 Gender:F Ordering : DR TRISTON ROB . Admission #: [id number] Family : Order #: [id number] CLICK HERE TO VIEW EXAM RADIOLOGY REPORT PROCEDURE: MAMMOGRAM SCREENING 3D BILATERAL CAD COMPARISON: MG MAMM SCREEN 3D EVENS CAD, 03/02/2022. MG MAMM SCREEN 3DBIL CAD, 02/16/2021. MG MAMM SCREEN EVENS W CAD, 02/18/2020. DIGITIZED_MAMMO, 10/27/2008. INDICATIONS: Screening mammography Calculator Name NCI Breast Cancer Risk Assessment Tool 5 Year Breast Cancer Risk 1.60% Lifetime Breast Cancer Risk 8.10% Personal Breast Cancer No Personal Ovarian Cancer No Treatments None Family Cancers Aunt-maternal with breast cancer at age 52; Mother with ureter cancer at age 50. LOCATION: [facility] BREAST COMPOSITION: Scattered areas fibroglandular density. FINDINGS: DIAGNOSTIC CATEGORY 1--NEGATIVE. RIGHT BREAST: No significant suspicious finding. No significant changehas occurred. LEFT BREAST: No significant suspicious finding. No significant changehas occurred. RECOMMENDATIONS: ROUTINE MAMMOGRAM AND CLINICAL EVALUATION IN 12 MONTHS. PLEASE NOTE: A NORMAL MAMMOGRAM DOES NOT EXCLUDE THE POSSIBILITY OFBREAST CANCER. A CLINICALLY SUSPICIOUS PALPABLE LUMP SHOULD BE BIOPSIED. Dictated by: Isra Norman M.D. on 02/15/2023 at 11:02 Approved by: Isra Norman M.D. on 02/15/2023 at 11:05 [facility] Final Result documented in this encounter Visit Diagnoses Not on filedocumented in this encounter Care Teams Titrator Relationship Specialty Start Date End Date Shaikh Bateman MD [address] [place] [address] PCP - General 05/08/23 documented as of this encounter
--- OUTSIDE RECORDS SUMMARY | 2025-03-03 13:57 | XMS_ITS | Encounter Summary ---
Author Organization [facility] Address [address] [place] [address] Care Team Providers Care Mophead Trimmer And Wrapper Name Role Phone Shaikh AURELIANO Bateman Primary Care Provider [phone] Encounter Details Date Type Department Care Team (Late Contact Info) Description 02/25/2025 Orders Only [facility] [address] [place] [address] Sylvia Yousif, PARTNER MARKETING INTERN [address] [place] [address] Encounter for wellness examination in adult (Primary Dx) Social History Tobacco Use Types Packs/Day Years [...] EDT Office Visit [facility] [address] [place] [address] Triston Rob DO [address] [place] [address] Scheduled Orders Name Type Priority Associated Diagnoses Orde r Schedule CBC and differential Lab Routine Encounter for wellness examination in adult Expected: 02/25/2025 (Approximate), Expires: 02/25/2026 Comprehensive metabolic panel Lab Routine Encounter for wellness examination in adult Expected: 02/25/2025 (Approximate), Expires: 02/25/2026 Lipid panel Lab Routine Encounter for wellness examination in adult Expected: 02/25/2025 (Approximate), Expires: 02/25/2026 TSH Lab Routine Encounter for wellness examination in adult Expected: 02/25/2025 (Approximate), Expires: 02/25/2026 Hemoglobin A1c Lab Routine Encounter for wellness examination in adult Expected: 02/25/2025 (Approximate), Expires: 02/25/2026 documented as of this encounter Visit Diagnoses Diagnosis Encounter for wellness examination in adult- Primary documented in this encounter Care Teams Mophead Trimmer And Wrapper Relationship Specialty Start Date End Date Shaikh Bateman MD [address] [place] [address] PCP - General 05/08/23 documented as of this encounter
--- NOTE | 2025-03-03 13:58 | MM_ITS ---
Patient Name: EUSEBIO SCHMITT MR#: [id number] : 1960 Exam Date: 03/03/2025 Ordering Doctor: DR CLEMENTINE THOMAS . RADIOLOGY REPORT PROCEDURE: MM TOMOSYNTHESIS SCREENING BI COMPARISON: MM TOMOSYNTHESIS SCREENING BI, 02/26/2024. MG MAMM SCREEN 3D EVENS CAD, 02/14/2023. MG MAMM SCREEN 3D [place]ENS CAD, 03/02/2022. MG MAMM EVENS SCRN W CAD DIG, 12/11/2013. INDICATIONS: Screening Calculator Name NCI Breast Cancer Risk Assessment Tool 5 Year Breast Cancer Risk 1.70% Lifetime Breast Cancer Risk 7.70% Personal Breast Cancer No Personal Ovarian Cancer No Treatments None Family Cancers Aunt-maternal with breast cancer at age 52; Mother with ureter cancer at age 50. LOCATION: [facility] BREAST COMPOSITION: There are scattered areas of fibroglandular density. FINDINGS: RIGHT BREAST: No significant suspicious finding. LEFT BREAST: No significant suspicious finding. DIAGNOSTIC CATEGORY 1--NEGATIVE. RECOMMENDATIONS: ROUTINE MAMMOGRAM AND CLINICAL EVALUATION IN 12 MONTHS. PLEASE NOTE: A NORMAL MAMMOGRAM DOES NOT EXCLUDE THE POSSIBILITY OF BREAST CANCER. A CLINICALLY SUSPICIOUS PALPABLE LUMP SHOULD BE BIOPSIED. Dictated by: Raleigh Cabral DO on 03/03/2025 at 15:58 Approved by: Raleigh Cabral DO on 03/03/2025 at 15:59
== END 2025-03-03 13:56 | disposition home or self-care (01) ==
LOC: MAMMO 13:55
PROVIDERS: Visit Provider Obstetrics & Gynecology
DX: Z12.31 Encounter for screening mammogram for malignant neoplasm of breast (principal); Z80.3 Family history of malignant neoplasm of breast; Z80.8 Family history of malignant neoplasm of other organs or systems
CPT/HCPCS: 77063; 77067

== ENCOUNTER 2025-03-12 06:06 | Outpatient (OUT) | payer BC, SELFPAY ==
--- OUTSIDE RECORDS SUMMARY | 2025-03-12 06:09 | XMS_ITS | CCD ---
Author Organization [facility] Care Team Providers Care Casting Agent Name Role Phone DARRON ., DR SPRING Admitting Unavailable DARRON ., DR SPRING Attending Unavailable REED ., [...] REED ., DR SALVADOR Pfeiffer Consulting Unavailable [place], DR KELVIN Corral Consulting Unavailable DARRON ., DR SPRING Admitting Unavailable DARRON ., DR SPRING Attending Unavailable REED ., DR SALVADOR Pfeiffer Primary Care Unavailable DARRON ., DR SPRING Consulting Unavailable DARRONCLEMENTINE Attending Unavailable Will Bateman MDikh Primary Care Provider Allergies Allergy Classification Reported Allergen(s) Allergy Type Date of Onset Reaction(s) Facility (2 sources) Cefaclor Drug Allergy [facility] Repository (7 sources) Cefaclor Drug Allergy 3 Unknown [facility] Work Phone: (7 sources) Sulfonamides (Antibiotic) Drug Allergy 3 Hives, Unknown [facility] Medications Current Medications Medication Drug Class(es) Dates Sig (Normalized) Sig (Original) B Dbajglx-Xtipdn-OH (BALANCED B COMPLEX PO) (7 sources) B Complex-Biotin -FA (BALANCED B COMPLEX PO) Active Cholecalciferol (7 sources) Vitamin D Cholecalciferol (D3 2000 PO) Active ezetimibe 10 mg oral tablet (8 sources) Dietary Cholesterol Absorption Inhibitor Start: 03-19-2024 End: 03-10-2025 take 1 tablet by mouth once daily ezetimibe (Zetia) 10 MG tablet Indications: Hyperlipidemia, unspecified hyperlipidemia type (CMS/HCC) Take 1 tablet (10 mg) by mouth Daily 90 tablet 1 09/11/2024 03/10/2025 Active Completed/Discontinued Medications Medication Drug Class(es) Dates Sig (Normalized) Sig (Original) Muscoda Bergamot 650 MG tablet (3 sources) End: 05-20-2024 Muscoda Bergamot 650 MG tablet Muscoda Bergamot 05/20/2024 Discontinued (Other) Muscoda Bergamot 650 MG tablet Muscoda Bergamot Active Garlic preparation (3 sources) Non-Standardized Food Allergenic Extract End: 05-20-2024 Garlic 2 MG capsule Garlic 05/20/2024 Discontinued (Other) Garlic 2 MG caps ule Garlic Active rosuvastatin calcium 5 mg oral tablet (3 sources) HMG-CoA Reductase Inhibitor Start: 11-29-2023 End: 05-20-2024 take 1 tablet by mouth once daily rosuvastatin (Crestor) 5 MG tablet Indications: Hyperlipidemia, unspecified (CMS/HCC) TAKE 1 TABLET BY MOUTH EVERY DAY 90 tablet 2 11/29/2023 05/20/2024 Discontinued (Other) Problems Active Problems Problem Classification Problem Date Documented Da te Episodic/Chronic Disorders of lipid metabolism (5 sources) Pure hypercholesterol emia, unspecified; Translations: [Hyperlipidemia] Onset: 06-01-2022 Chronic Past or Other Problems Problem Classification [...] of other genital organs; Translations: [FAM HX MALIG NEOPLSM OTH GENIT ORGN] Onset: 03-05-2022 Episodic Urinary tract infections (4 sources) Urinary tract infection, site not specified; Translations: [UTI SITE NOT SPECIFIED] Onset: 07-13-2022 Episodic Results Test Name Value Interpretation Reference Range Facility MM TOMOSYNTHESIS SCREENING B Ion 03-03-2025 [place] [address] Mammography Report Signed Patient: OANH FOX MR#: [id number] : 1960 Acct:[id number] Age/Sex: 64 / F ADM Date: 03/03/25 Loc: MAMMO Attending Dr: Clementine Rob D.O. Ordering Physician: Clementine Rob D.O. Results: Date of Service: 03/03/25 Follow Up: Procedure(s): MM tomosynthesis screening BI Accession Number(s): [id number] cc: Clementine Rob D.O.; Physician,Non-Staff M.DMee Patient Name: OANH FOX MR#: [id number] : 1960 Exam Date: 03/03/2025 Ordering Doctor: DR CLEMENTINE ROB . RADIOLOGY REPORT PROCEDURE: MM TOMOSYNTHESIS SCREENING BI COMPARISON: MM TOMOSYNTHESIS SCREENING BI, 02/26/2024. MG MAMM SCREEN 3D EVENS CAD, 02/14/2023. MG MAMM SCREEN 3D EVENS CAD, 03/02/2022. MG MAMM EVENS SCRN W CAD DIG, 12/11/2013. INDICATIONS: Screening Calculator Name NCI Breast Cancer Risk Assessment Tool 5 Year Breast Cancer Risk 1.70% Lifetime Breast Cancer Risk 7.70% Personal Breast Cancer No Personal Ovarian Cancer No Treatments None Family Cancers Aunt-maternal with breast cancer at age 52; Mother with ureter cancer at age 50. LOCATION: [facility] BREAST COMPOSITION: There are scattered areas of fibroglandular density. FINDINGS: RIGHT BREAST: No significant suspicious finding. LEFT BREAST: No significant suspicious finding. DIAGNOSTIC CATEGORY 1--NEGATIVE. RECOMMENDATIONS: ROUTINE MAMMOGRAM AND CLINICAL EVALUATION IN 12 MONTHS. PLEASE NOTE: A NORMAL MAMMOGRAM DOES NOT EXCLUDE THE POSSIBILITY OF BREAST CANCER. A CLINICALLY SUSPICIOUS PALPABLE LUMP SHOULD BE BIOPSIED. Dictated by: Raleigh Cabral DO on 03/03/2025 at 15:58 Approved by: Raleigh Cabral DO on 03/03/2025 at 15:59 Dictated By: Raleigh Cabral D.O. Signed By: 03/03/25 1600 DD/ 1559 TD/TT: Title Insurance Agent: [facility] Radiology, Radiologist, MD - 03/03/2025 [place] [address] Mammography Report Signed Patient: OANH FOX MR#: [id number] : 1960 Acct:[id number] Age/Sex: 64 / F ADM Date: 03/03/25 Loc: MAMMO Attending Dr: Clementine Rob D.O. Ordering Physician: Clementine Rob D.O. Results: Date of Service: 03/03/25 Follow Up: Procedure(s): MM tomosynthesis screening BI Accession Number(s): [id number] cc: Clementine Rob D.O.; Physician,Non-Staff [place] Patient Name: OANH FOX MR#: [id number] : 1960 Exam Date: 03/03/2025 Ordering Doctor: DR CLEMENTINE ROB . RADIOLOGY REPORT PROCEDURE: MM TOMOSYNTHESIS SCREENING BI COMPARISON: MM TOMOSYNTHESIS SCREENING BI, 02/26/2024. MG MAMM SCREEN 3D EVENS CAD, 02/14/2023. MG MAMM SCREEN 3D EVENS CAD, 03/02/2022. MG MAMM EVENS SCRN W CAD DIG, 12/11/2013. INDICATIONS: Screening Calculator Name NCI Breast Cancer Risk Assessment Tool 5 Year Breast Cancer Risk 1.70% Lifetime Breast Cancer Risk 7.70% Personal Breast Cancer No Personal Ovarian Cancer No Treatments None Family Cancers Aunt-maternal with breast cancer at age 52; Mother with ureter cancer at age 50. LOCATION: [facility] BREAST COMPOSITION: There are scattered areas of fibroglandular density. FINDINGS: RIGHT BREAST: No significant suspicious finding. LEFT BREAST: No significant suspicious finding. DIAGNOSTIC CATEGORY 1--NEGATIVE. RECOMMENDATIONS: ROUTINE MAMMOGRAM AND CLINICAL EVALUATION IN 12 MONTHS. PLEASE NOTE: A NORMAL MAMMOGRAM DOES NOT EXCLUDE THE POSSIBILITY OF BREAST CANCER. A CLINICALLY SUSPICIOUS PALPABLE LUMP SHOULD BE BIOPSIED. Dictated by: Raleigh Cabral DO on 03/03/2025 at 15:58 Approved by: Raleigh Cabral DO on 03/03/2025 at 15:59 Dictated By: Raleigh Cabral D.O. Signed By: 03/03/25 1600 DD/ 1559 TD/TT: Title Insurance Agent: [facility] [employer] Radiology Study observation (narrative) [facility] [employer] MM TOMOSYNTHESIS SCREENING B IOrdered By: Radiologist Radiology on 03-03-2025 [facility] [employer] Work Phone: IGP,APTIMA HPV,AGE GDLNon AGE GDLN ACOG TESTING Note . [facility] [employer] Comment on above: TESTS RESULT FLAG UN ITS REF RANGE LAB Clinician Provided Cytology Information Source.............Vagina No. of containers..01 ThinPrep Vial Age Algo ACOG Dipika... FLAG LEGEND: L-Low Normal,H-High Normal,LL-Alert Low,HH-Alert High <-Panic Low,>-Panic High,A-Abnormal,AA-Critical Abnormal Performed at: 01 =[facility] [address] Kelsy Mccann MD, HPV APTIMA Negative Negative [facility] Comment on above: This nucleic acid am plification test detects fourteen high- risk HPV types (16,18,31,33,35,39,45,51,52,56,58,59,66,68) without differentiation. Performed at: =G - [facility] [id number] [employer] Supervisor: Kelsy Mccann MD, Phone: [phone] Performed at: - [facility], [place] [id number] [employer] Supervisor: Kelsy Mccann MD, Phone: [phone] IGP, APTIMA HPV, RFX 16/18,45 Note . [facility] Comment on above: TESTS RESULT FLAG UN ITS REF RANGE LAB DIAGNOSIS: 02 NEGATIVE FOR INTRAEPITHELIAL LESION OR MALIGNANCY. Specimen adequacy: 02 Satisfactory for evaluation. Endocervical and/or squamous metaplastic cells (endocervical component) are present. Performed by: Carli Dueñas, Digital Sales Assistant ([facility]) . 02 Note: Note 02 The Pap smear is a screening test designed to aid in the detection of premalignant and malignant conditions of the uterine cervix. It is not a diagnostic procedure and should not be used as the sole means of detecting cervical cancer. Both false-positive and false-negative reports do occur. Test Methodology: Note 02 This liquid based ThinPrep(R) pap test was screened with the use of an image guided system. HPV Genotype Reflex Note 02 Criteria not met, HPV Genotype not performed. FLAG LEGEND: L-Low Normal,H-High Normal,LL-Alert Low,HH-Alert High <-Panic Low,>-Panic High,A-Abnormal,AA-Critical Abnormal Performed at: [address] [address] Kelsy Mccann MD, SPATULA-ALONE VAGINA [facility] CULTURE URINEon 07-15-2022 CULTURE URINE Isolate 1 [...] S F Oxacillin <=0.25 S F Normal [facility] Comment on above: Performed By: #### U RCX #### [facility] [address] [address] [address] El Voss LIPID PROFILEon 06-01-2022 CHOL-HDL RATIO NORM SEE BELOW Normal [facility] Comment on above: Result Comment: 3.3 - 4.4 LOW RISK 4.4 - 7.1 AVERAGE RISK 7.1 - 11.0 MODERATE RISK >11.0 HIGH RISK Performed By: #### L IPID, AST #### [facility] [address] [address] [address] El Voss Cholesterol [Mass/Vol] 159 mg/dL Normal <=200 [facility] Comment on above: Performed By: #### L IPID, AST #### [facility] [address] [address] [address] El Voss Cholesterol in HDL [Mass/Vol] 71 mg/dL Critically high 40-60 [facility] Comment on above: Performed By: #### L IPID, AST #### [facility] [address] [address] [address] El Voss Cholesterol in LDL [Mass/Vol] 76.2 mg/dL Normal [facility] Comment on above: Performed By: #### L IPID, AST #### [facility] [address] [address] [address] El Voss Cholesterol.total/Ch olesterol in HDL [Mass ratio] 2.2 {ratio} Normal [facility] Comment on above: Performed By: #### L IPID, AST #### [facility] [address] [address] [address] El Voss HDL NORMAL > or = 60 mg/dl - LO W CARDIOVASCULAR RISK <40 mg/dl - HIGH CARDIOVASCULAR RISK Normal [facility] Comment on above: Performed By: #### L IPID, AST #### [facility] [address] [place] [address] Dr. El Voss LDL CALC NORMAL SEE BELOW Normal [facility] Comment on above: Result Comment: <100 mg/dl OPTIMAL 100 - 129 mg/dl NEAR OR ABOVE OPTIMAL 130 - 159 mg/dl BORDERLINE HIGH 160 - 189 mg/dl HIGH >190 mg/dl VERY HIGH Performed By: #### L IPID, AST #### [facility] [address] [place] [address] Dr. El Voss Triglyceride [Mass/Vol] 59 mg/dL Normal <=150 [facility] Comment on above: Performed By: #### L IPID, AST #### [facility] [address] [address] [address] El Voss VLDL CALC 11.8 mg/dL Normal [facility] Comment on above: Performed By: #### L IPID, AST #### [facility] [address] [place] [address] Dr. El Voss SGMgn 06-01-2022 AST [Catalytic activity/Vol] 16 U/L Normal 15-37 [facility] Comment on above: Performed By: #### L IPID, AST #### [facility] [address] [place] [address] Dr. El Voss PAP ACOG PANEL 2: 30 to 65on 05-13-2022 . . Normal [facility] Comment on above: Result Comment: Perf ormed at: WB Performed By: #### [id number] #### [facility] [address] [place] [address] Dr. El Voss Age Gdln ACOG Testing 30-65 [facility] Comment on above: Performed By: #### [id number] #### [facility] [address] [address] [address] El Voss DIAGNOSIS: Comment [facility] Comment on above: Result Comment: NEGA TIVE FOR INTRAEPITHELIAL LESION OR MALIGNANCY. Performed at: WB Performed By: #### [id number] #### [facility] [address] [place] [address] Dr. El Voss HPV Aptima Negative Normal Negative [facility] Comment on above: Result Comment: This nucleic acid amplification test detects fourteen high-risk HPV types (16,18,31,33,35,39,45,51,52,56,58,59,66,68) without differentiation. Performed at: =G Performed By: #### [id number] #### [facility] [address] [place] [address] Dr. El Voss Methodology: Comment [facility] Comment on above: Result Comment: This liquid based ThinPrep(R) pap test was screened with the use of an image guided system. Performed at: WB Performed By: #### [id number] #### [facility] [address] [place] [address] Dr. El Voss Note: Comment [facility] Comment on above: Result Comment: The Pap smear is a screening test designed to aid in the detection of premalignant and malignant conditions of the uterine cervix. It is not a diagnostic procedure and should not be used as the sole means of detecting cervical cancer. Both false-positive and false-negative reports do occur. . Performed at: WB Performed By: #### [id number] #### [facility] [address] [place] [address] Dr. El Voss Performed by: Comment Normal [facility] Comment on above: Result Comment: Dee Cui, Digital Sales Assistant (ASCP) Performed at: WB Performed By: #### [id number] #### [facility] [address] [place], [place] [address] Dr. El Voss Specimen adequacy: Comment Normal [facility] Comment on above: Result Comment: Sati sfactory for evaluation. Endocervical and/or squamous metaplastic cells (endocervical component) are present. Performed at: WB Performed By: #### [id number] #### [facility] [address] [place], [place] [address] Dr. El Voss MG MAMM SCREEN 3D EVENS CADon 03-02-2022 MG MAMM SCREEN 3D EVENS CAD Patient: OANH FOX Exam Date: 03/02/2022 : 1960 Gender:F Ordering : DR SALVADOR REED . Admission #: [id number] Family : Order #: [id number] CLICK HERE TO VIEW EXAM RADIOLOGY REPORT [...] ureter cancer at age 52. LOCATION: [facility] BREAST COMPOSITION: Scattered areas fibroglandular density. FINDINGS: [...] MD on 03/02/2022 at 10:18 Normal [facility] CBC AUTO DIFFon 03-01-2022 BASO # 0.1 103/ul Normal 0.0-0.1 [facility] Comment on above: Performed By: #### D ATCBC #### [facility] [address] [place] [address] Dr. El Voss Basophils/100 WBC (Bld) 1.1 % Normal 0.2-2.0 [facility] Comment on above: Performed By: #### D ATCBC #### [facility] [address] [place] [address] Dr. El Voss EO # 0.1 103/ul Normal 0.0-0.7 [facility] Comment on above: Performed By: #### D ATCBC #### [facility] [address] [place] [address] Dr. El Voss Eosinophils/100 WBC (Bld) 2.6 % Normal 0.9-7.0 [facility] Comment on above: Performed By: #### D ATCBC #### [facility] [address] [place] [address] Dr. El Voss Erythrocyte distribution width (RBC) [Ratio] 12.7 % Normal 11.0-15.0 [facility] Comment on above: Performed By: #### D ATCBC #### [facility] [address] [place] [address] Dr. El Voss Hematocrit (Bld) [Volume fraction] 42.8 % Normal 36.0-48.0 [facility] Comment on above: Performed By: #### D ATCBC #### [facility] [address] [place] [address] Dr. El Voss Hemoglobin (Bld) [Mass/Vol] 13.8 g/dL Normal 12.0-16.0 [facility] Comment on above: Performed By: #### D ATCBC #### [facility] [address] [place] [address] Dr. El Voss IG # 0.01 10e3/ul Normal 0.00-0.03 [facility] Comment on above: Performed By: #### D ATCBC #### [facility] [address] [place] [address] Dr. El Voss IG % 0.2 % Normal 0.0-0.5 [facility] Comment on above: Performed By: #### D ATCBC #### [facility] [address] [place] [address] Dr. El Voss LYMPH # 1.9 103/ul Normal 1.2-3.8 [facility] Comment on above: Performed By: #### D ATCBC #### [facility] [address] [place] [address] Dr. El Voss Lymphocytes/100 WBC (Bld) 40.4 % Normal 20.5-60.0 [facility] Comment on above: Performed By: #### D ATCBC #### [facility] [address] [place] [address] Dr. El Voss MCH (RBC) [Entitic mass] 30.3 pg Normal 26.7-34.0 [facility] Comment on above: Performed By: #### D ATCBC #### [facility] [address] [place] [address] Dr. El Voss MCHC (RBC) [Mass/Vol] 32.2 g/dL Normal 29.9-35.2 [facility] Comment on above: Performed By: #### D ATCBC #### [facility] [address] [place] [address] Dr. El Voss MCV (RBC) [Entitic vol] 93.9 fL Normal 81.0-99.0 [facility] Comment on above: Performed By: #### D ATCBC #### [facility] [address] [place] [address] Dr. El Voss MONO # 0.4 103/ul Normal 0.3-0.8 [facility] Comment on above: Performed By: #### D ATCBC #### [facility] [address] [place] [address] Dr. El Voss Monocytes/100 WBC (Bld) 8.2 % Normal 1.7-12.0 [facility] Comment on above: Performed By: #### D ATCBC #### [facility] [address] [place] [address] Dr. El Voss NEUT # 2.2 103/ul Normal 1.4-6.5 [facility] Comment on above: Performed By: #### D ATCBC #### [facility] [address] [place] [address] Dr. El Voss Neutrophils/100 WBC (Bld) 47.5 % Normal 43.0-75.0 [facility] Comment on above: Performed By: #### D ATCBC #### [facility] [address] [place] [address] Dr. El Voss Platelet mean volume (Bld) [Entitic vol] 9.9 fL Normal 9.5-13.5 [facility] Comment on above: Performed By: #### D ATCBC #### [facility] [address] [place] [address] Dr. El Voss PLT 226 103/ul Normal 150-450 [facility] Comment on above: Performed By: #### D ATCBC #### [facility] [address] [place] [address] Dr. El Voss RBC 4.56 106/ul Normal 4.20-5.40 [facility] Comment on above: Performed By: #### D ATCBC #### [facility] [address] [place] [address] Dr. El Voss WBC 4.7 103/ul Normal 4.0-11.0 [facility] Comment on above: Performed By: #### D ATCBC #### [facility] [address] [place] [address] Dr. El Voss JONATAN - LIPID PROFILEon 2021 CHOL-HDL RATIO NORM SEE BELOW Normal [facility] Comment on above: Result Comment: 3.3 - 4.4 LOW RISK 4.4 - 7.1 AVERAGE RISK 7.1 - 11.0 MODERATE RISK >11.0 HIGH RISK Performed By: #### D ATLIPI, DATBMP #### [facility] [address] [place] [address] Dr. El Voss Cholesterol.total/Ch olesterol in HDL [Mass ratio] 3.5 {ratio} Normal [facility] Comment on above: Performed By: #### D SERGIO DATBMP #### [facility] [address] [address] [address] El Voss JONATAN- BMP WITH LIPIDon 2021 Anion gap [Moles/Vol] 13.6 mmol/L Normal [facility] Comment on above: Performed By: #### D SERGIO DATBMP #### [facility] [address] [address] [address] El Voss Calcium [Mass/Vol] 9.0 mg/dL Normal 8.5-10.1 [facility] Comment on above: Performed By: #### Kenneth HILL DATBMP #### [facility] [address] [address] [address] El Voss Chloride [Moles/Vol] 105 mmol/L Normal 98-107 [facility] Comment on above: Performed By: #### Kenneth HILL DATBMP #### [facility] [address] [address] [address] El Voss Cholesterol [Mass/Vol] 259 mg/dL Critically high <=200 [facility] Comment on above: Performed By: #### Kenneth HILL DATBMP #### [facility] [address] [place] [address] Dr. El Voss Cholesterol in HDL [Mass/Vol] 73 mg/dL Critically high 40-60 [facility] Comment on above: Performed By: #### Kenneth HILL DATBMP #### [facility] [address] [place] [address] Dr. El Voss Cholesterol in LDL [Mass/Vol] 174.0 mg/dL Normal [facility] Comment on above: Performed By: #### Kenneth HILL DATBMP #### [facility] [address] [place] [address] Dr. El Voss CO2 [Moles/Vol] 27.4 mmol/L Normal 21.0-32.0 [facility] Comment on above: Performed By: #### Kenneth HILL DATBMP #### [facility] [address] [address] [address] El Voss Creatinine [Mass/Vol] 0.75 mg/dL Normal 0.55-1.02 [facility] Comment on above: Performed By: #### D SERGIO DATBMP #### [facility] [address] [address] [address] El Voss EGFR-AF WALLISIAN >60 Normal >=60 [facility] Comment on above: Performed By: #### D SERGIO DATBMP #### [facility] [address] [address] [address] El Voss EGFR-NON AF WALLISIAN >60 Normal >=60 [facility] Comment on above: Performed By: #### D SERGIO DATBMP #### [facility] [address] [address] [address] El Voss Glucose [Mass/Vol] 110 mg/dL Critically high 74-106 [facility] Comment on above: Performed By: #### D SERGIO DATBMP #### [facility] [address] [address] [address] El Voss HDL NORMAL > or = 60 mg/dl - LO W CARDIOVASCULAR RISK <40 mg/dl - HIGH CARDIOVASCULAR RISK Normal [facility] Comment on above: Performed By: #### D SERGIO DATBMP #### [facility] [address] [address] [address] El Voss LDL CALC NORMAL SEE BELOW Normal [facility] Comment on above: Result Comment: <100 mg/dl OPTIMAL 100 - 129 mg/dl NEAR OR ABOVE OPTIMAL 130 - 159 mg/dl BORDERLINE HIGH 160 - 189 mg/dl HIGH >190 mg/dl VERY HIGH Performed By: #### D SERGIO DATBMP #### [facility] [address] [address] [address] El Voss Potassium [Moles/Vol] 4.0 mmol/L Normal 3.5-5.1 [facility] Comment on above: Performed By: #### D SERGIO DATBMP #### [facility] [address] [address] [address] El Voss Sodium [Moles/Vol] 142 mmol/L Normal 136-145 [facility] Comment on above: Performed By: #### D SERGIO DATBMP #### [facility] [address] [address] [address] El Voss Triglyceride [Mass/Vol] 60 mg/dL Normal <=150 [facility] Comment on above: Performed By: #### D SERGIO DATBMP #### [facility] [address] [place] [address] Dr. El Voss Urea nitrogen [Mass/Vol] 18.0 mg/dL Normal 7.0-18.0 [facility] Comment on above: Performed By: #### D SERGIO DATBMP #### [facility] [address] [place] [address] Dr. El Voss Urea nitrogen/Creatinine [Mass ratio] 24.0 mg/mg Normal [facility] Comment on above: Performed By: #### D SERGIO DATBMP #### [facility] [address] [place] [address] Dr. El Voss VLDL CALC 12.0 mg/dL Normal [facility] Comment on above: Performed By: #### D SERGIO DATBMP #### [facility] [address] [place] [address] Dr. El Voss GLYCOHEMOGLOBIN A1Con 2021 ADA RECOMMENDATION SEE BELOW Normal [facility] Comment on above: Result Comment: ADA RECOMMENDED LIMIT 4.0 - 6.0 ADA THERAPEUTIC TARGET < 7.0 ACTION SUGGESTED > 7.0 Performed By: #### D ATA1C #### [facility] [address] [address] [address] El Voss Glucose [Mass/Vol] 111 mg/dL Normal [facility] Comment on above: Performed By: #### D ATA1C #### [facility] [address] [place] [address] Dr. El Voss HbA1c (Bld) [Mass fraction] 5.5 % Normal 4.5-6.2 [facility] Comment on above: Performed By: #### D ATA1C #### [facility] [address] [address] [address] El Voss TSHon 03-01-2022 TSH 3.641 uIU/mL Normal 0.358-3.740 [facility] Comment on above: Performed By: #### T SH #### [facility] [address] [address] [address] El Voss TSH RANGE SEE BELOW Normal [facility] Health Comment on above: Result Comment: <0.3 4 UIU/ml HYPERTHYROID 0.34-5.60 UIU/ml EUTHYROID >5.60 UIU/ml HYPOTHYROID Performed By: #### T SH #### [facility] [address] [address] [address] [place] Voss Vital Signs Date Time Vital Sign Value Performing Clinician Faci lity 05-20-2024 14:34-0400 Body mass index (BMI) [Ratio] 25.6 kg/m2 Clementine Darron DO Work Phone: [facility] 05-20-2024 14:34-0400 Body weight 67.64 kg Clementine Darron DO Work Phone: [facility] 05-20-2024 14:34-0400 Diastolic blood pressure 70 mm[Hg] Clementine Darron DO Work Phone: [facility] 05-20-2024 14:34-0400 Systolic blood pressure 114 mm[Hg] Clementine Darron DO Work Phone: [facility] Encounters Encounter Date Encounter Type Care Provider Facility Start: 03-03-2025 End: 03-03-2025 Clinisync Result Encounter Clementine Darron DO Work Phone: [facility] External Department Unsolicited Start: 03-03-2025 End: 03-03-2025 Clinisync Result Encounter Clementine Darron DO Work Phone: [facility] External Department Unsolicited Start: 02-25-2025 End: 02-25-2025 Orders Only Sylvia Yousif QUALITY LEAD Work Phone: [facility] Comment on above: Encounter for wellne ss examination in adult (Primary Dx) Start: 02-25-2025 End: 02-25-2025 Patient encounter status Sylvia Yousif QUALITY LEAD Work Phone: [facility] Work Phone: Start: 09-11-2024 End: 09-11-2024 Refill Fiordaliza Taylorpatrick QUALITY LEAD Work Phone: [facility] Comment on above: Hyperlipidemia, unsp ecified hyperlipidemia type (CMS/HCC) Start: 05-20-2024 End: 05-20-2024 Bamboo flowsheet Clementine Darron DO Work Phone: [facility] Start: 05-20-2024 End: 05-24-2024 Bamboo flowsheet Clementine Darron DO Work Phone: [facility] Start: 05-20-2024 End: 05-24-2024 Clinisync Result Encounter Clementine Darron DO Work Phone: [facility] Unsolicited Start: 05-20-2024 End: 05-20-2024 Patient encounter procedure Clementine Darron DO Work Phone: [facility] Work Phone: Start: 05-20-2024 End: 05-20-2024 Periodic preventive med est patient 40-64yrs Clementine Darron DO Work Phone: [facility] Comment on above: Well woman exam with routine gynecological exam Start: 05-20-2024 End: 05-20-2024 ambulatory CLEMENTINE ROB Not Available Start: 02-14-[address] CLEMENTINE ROB . Facili ty:[facility] Start: 07-13-2022 End: 07-14-[address] SALVADOR REED . Facility:[facility] Start: 06-01-2022 End: 06-02-[address] SALVADOR REED . Facility:[facility] Start: 05-09-2022 End: 05-09-[address] CLEMENTINE ROB . Facility:[facility] Start: 03-05-2022 Encounter for genera l adult medical examination without abnormal findings DR SALVADOR REED . [facility] Start: 03-02-2022 End: 03-03-[address] SALVADOR REED . Facility:[facility] Start: 03-02-2022 End: 03-03-2022 Encounter for general adult medical examination without abnormal findings DR SALVADOR REED . Facility:[facility] Procedures Date Procedure Procedure Detail Performing Clinician Start: 03-03-2025 MM TOMOSYNTHESIS SCR EENING BI Clementine Rob DO Work Phone: Start: 05-20-2024 IGP,APTIMA HPV,AGE GDLN Generic External Data Provider Start: 05-20-2024 Microscopic observat ion [Identifier] in Cervix by Cyto stain Fiordaliza Curry QUALITY LEAD Work Phone: Start: 02-29-2024 Mammography Clementine hernandez DO Work Phone: Plan of Treatment Date Care Activity Detail Author Start: 05-20-2027 Screening for malign ant neoplasm of cervix [facility] Start: 05-21-2025 End: 05-21-2025 Patient encounter procedure 05/21/2025 3:00 PM EDT Office Visit [facility] [address] [place] [phone] Clementine Rob, DO [address] [place] [address] [facility] Start: 02-28-2025 Screening for malign ant neoplasm of breast Mammogram [facility] Start: 02-25-2025 End: 02-25-2026 CBC W Auto Differential panel - Blood CBC and differential Lab Routine Encounter for wellness examination in adult Expected: 02/25/2025 (Approximate), Expires: 02/25/2026 [facility] Work Phone: Comment on above: Expected: 02/25/2025 (Approximate), Expires: 02/25/2026 Start: 02-25-2025 End: 02-25-2026 Comprehensive metabolic 2000 panel - Serum or Plasma Comprehensive metabolic panel Lab Routine Encounter for wellness examination in adult Expected: 02/25/2025 (Approximate), Expires: 02/25/2026 [facility] Comment on above: Expected: 02/25/2025 (Approximate), Expires: 02/25/2026 Start: 02-25-2025 End: 02-25-2026 Hemoglobin A1c/Hemoglobin.total in Blood Hemoglobin A1c Lab Routine Encounter for wellness examination in adult Expected: 02/25/2025 (Approximate), Expires: 02/25/2026 [facility] Comment on above: Expected: 02/25/2025 (Approximate), Expires: 02/25/2026 Start: 02-25-2025 End: 02-25-2026 Lipid 1996 panel - Serum or Plasma Lipid panel Lab Routine Encounter for wellness examination in adult Expected: 02/25/2025 (Approximate), Expires: 02/25/2026 [facility] Comment on above: Expected: 02/25/2025 (Approximate), Expires: 02/25/2026 Start: 02-25-2025 End: 02-25-2026 Thyrotropin [Units/volume] in Serum or Plasma TSH Lab Routine Encounter for wellness examination in adult Expected: 02/25/2025 (Approximate), Expires: 02/25/2026 [facility] Comment on above: Expected: 02/25/2025 (Approximate), Expires: 02/25/2026 Start: 10-07-2024 End: 10-07-2024 Patient encounter procedure 10/07/2024 2:30 PM EST Office Visit [facility] [address] [place] [address] Fiordaliza Curry NP [address] [place] [phone] [facility] Start: 05-26-2024 Influenza vaccination Influenza Vacc ine (#1) [facility] Start: 05-20-2024 End: 05-20-2024 Patient encounter procedure 05/20/2024 2:00 PM EDT Office Visit [facility] [address] [place] [address] Clementine Rob, DO [address] [place] [address] [place] [address] Arrived [facility] Comment on above: Arrived Start: 1992 Screening for malign ant neoplasm of cervix [facility] Start: 1983 Screening for malign ant neoplasm of cervix Pap Smear [facility] Start: 1962 Screening for malign ant neoplasm of colon [facility] THIN PREP TIS PAP AN D HR HPV DNA THIN PREP TIS PAP AND HR HPV DNA Pathology and Cytology Routine Well woman exam with routine gynecological exam Ordered: 05/20/2024 [facility] Work Phone: Comment on above: Ordered: 05/20/2024 Immunizations Immunization Date Immunization Notes Care Provider Kieran aguayo 05-26-2016 influenza virus vacc ine, unspecified formulation Clementine Rob DO Work Phone: [facility] Payers Date Payer Category Payer [facility] BCBS [id number] 2022 Unknown BCBS BCBS xxxxxx [id number] 2022-Present [phone] [address] [place] [address] [id number] 2022 Unknown [id number] 2019 Unknown [id number] 1962 Unknown [id number] 1962 Unknown [id number] 1962 Unknown [id number] 1962 Unknown [id number] 1962 Unknown [id number] 1962 Unknown [id number] Social History Date Type Detail Facility Start: 05-10-2023 Tobacco smoking stat [facility] Never smoked tobacco [facility] Start: 05-10-2023 Tobacco use and exposure Smokeless t obacco non-user [facility] Start: 05-15-2023 Alcoholic beverage intake Curr ent drinker of alcohol (finding) [facility] Start: 05-15-2023 History of Social function [facility] Start: 05-15-2023 Tobacco use panel [facility] Start: 05-10-2023 Alcohol Comment Occasional Alcohol u se [facility] Start: 1960 Sex assigned at Female [facility] Start: 05-08-2023 Gender identity Identifies as female gender (finding) [facility] History of Present illness Narrative 05-20-2024 Letitia Gallegos LPN - 05/20/2024 2:00 PM EDT Note Date & Type Note Facility 05-20-2024 History of Presen t illness Narrative Reason for Appointment: Patient ID: Oanh Fox is a 64 y.o. female who presents for Well Women Visit Patient presents today for Annual Exam. MEDICATIONS Current Outpatient Medications Medication Instructions B [id number] (BALANCED B COMPLEX PO) Cholecalciferol (D3 2000 PO) ezetimibe (ZETIA) 10 mg, Oral, Daily ALLERGIES Allergies Allergen Reactions Cefaclor Unknown Sulfa Antibiotics Hives and Unknown PROBLEMS Active Ambulatory Problems Diagnosis Date Noted No Active Ambulatory Problems Resolved Ambulatory Problems Diagnosis Date Noted No Resolved Ambulatory Problems Past Medical History: Diagnosis Date Acute pelvic pain, female Bladder pain BMI 23.0-23.9, adult Breast cancer screening by mammogram Encounter for gynecological examination (general) (routine) without abnormal findings H/O: hysterectomy Heart murmur Hot flashes Post menopausal syndrome Rectocele Urinary incontinence in female Vaginal enterocele HISTORY PAST MEDICAL HISTORY SOCIAL HISTORY Past Medical History: Diagnosis Date Acute pelvic pain, female Bladder pain BMI 23.0-23.9, adult Breast cancer screening by mammogram Encounter for gynecological examination (general) (routine) without abnormal findings H/O: hysterectomy Heart murmur Hot flashes Post menopausal syndrome Rectocele Urinary incontinence in female Vaginal enterocele Social History Tobacco Use Smoking status: Never Smokeless tobacco: Never Substance Use Topics Alcohol use: Yes Comment: Occasional Alcohol use Drug use: Never FAMILY HISTORY Family History Problem Relation Name Age of Onset Heart disease Mother Cancer Mother Hypertension Father SURGICAL HISTORY Past Surgical History: Procedure Laterality Date BUNIONECTOMY Right 11/2016 distal chervon - [facility] HYSTERECTOMY 06/2011 [place] KNEE SCOPE,ABRASN ARTHROPLASTY Right 09/14/2017 chondroplasty - Dr. Alcazar [place] KNEE SCOPE,SINGLE MENISECTOMY Right 09/14/2017 Dr. Alcazar TONSILLECTOMY 02/1981 TRIGGER FINGER RELEASE Right 04/08/2019 MF and RF- Dr. Acosta WISDOM TOOTH EXTRACTION 02/1985 wisdom teeth REVIEW OF SYSTEMS Review of Systems: Review of Systems All other systems reviewed and are negative. OBJECTIVE Objective: Physical Exam Constitutional: Appearance: Normal appearance. She is well-developed. Genitourinary: Vulva normal. Vaginal cuff intact. Cervix is not absent. Uterus is not absent. Breasts: Breasts are soft. Right: Normal. Left: Normal. Cardiovascular: Rate and Rhythm: Normal rate and regular rhythm. Abdominal: General: Bowel sounds are normal. There is no distension. Palpations: Abdomen is soft. Tenderness: There is no abdominal tenderness. There is no guarding or rebound. Musculoskeletal: General: No swelling. Normal range of motion. Right lower leg: No edema. Left lower leg: No edema. Neurological: Mental Status: She is alert and oriented to person, place, and time. Skin: General: Skin is warm and dry. Psychiatric: Mood and Affect: Mood normal. Behavior: Behavior normal. Vitals and nursing note reviewed. Exam conducted with a machine rough rounder present. Vitals: Estimated body mass index is 25.6 kg/m as calculated from the following: Height as of 19: 5' 4 . Weight as of this encounter: 149 lb 1.9 oz. BP: 114/70 No LMP recorded. ASSESSMENT & PLAN ICD-10-CM 1. Well woman exam with routine gynecological exam Z01.419 Annual: Patient presents today for an annual exam. Patient states she is doing well and has no complaints. Pap was obtained without difficulty and patient given mammogram order to have scheduled/obtained. Follow Up: Patient is to return in one year for annual unless needed otherwise. Documented by Letitia Gallegos LPN on behalf of: Clementine Rob DO documented in this encounter [facility] Evaluation note Note Date & Type Note Facility Evaluation note Diagnosis Hyperlipidemia, unspecified hyperlipidemia type (CMS/HCC) documented in this encounter [facility] Evaluation note Note Date & Type Note Facility Evaluation note Diagnosis Well woman exam with routine gynecological exam Routine gynecological examination documented in this encounter [facility] Evaluation note Note Date & Type Note Facility Evaluation note Diagnosis Encounter for wellness examination in adult- Primary documented in this encounter [facility] Summary Purpose Family History No Family History Records FoundNo Family History Records Found Advance Directives No Advanced Directives Records FoundNo Advanced Directives Records Found Additional Source Comments INFORMATION SOURCE (unrecogn ized section and content) DATE CREATED AUTHOR 02/06/2023 [facility] DATE CREATED AUTHOR AUTHOR'S ORGANIZ ATION 05/22/2024 [facility] EPIC Reason for Visit (unrecogniz ed section and content) Reason Onset Date Comments Med Refill 09/11/2024 Reason Comments Well Women Visit Care Teams (unrecognized sec tion and content) Casting Agent Relationship Specialty Start Date End Date Shaikh Bateman MD [address] [place] [phone] PCP - General 05/08/23 Casting Agent Relationship Specialty Start Date End Date Shaikh Bateman MD [address] [place] [phone] PCP - General 05/08/23 Casting Agent Relationship Specialty Start Date End Date Shaikh Bateman MD [address] [place] [phone] PCP General 05/08/23 Casting Agent Relationship Specialty Start Date End Date Shaikh Bateman MD [address] [place] [phone] PCP General 05/08/23 Casting Agent Relationship Specialty Start Date End Date Shaikh Bateman MD [address] [place] [phone] [facility] 05/08/23 Casting Agent Relationship Specialty Start Date End Date Shaikh Bateman MD [address] [place] [phone] [facility] 05/08/23 FOR RECORDS PERTAINING TO PATIENTS WHO ARE [...] BE BASED ON THE PRIMARY CLINICAL RECORDS. [facility] [employer] [facility]. provides no warranty or guarantee of the accuracy or completeness of information in this document.
[2025-03-12 06:23] LABS: Basophils Percent Auto 0.8 % (0.2-2.0); Eosinophils Absolute Auto 0.2 10^3/uL (0.0-0.7); Eosinophils Percent Auto 3.4 % (0.9-7.0); Hematocrit 42.8 % (36.0-48.0); Hemoglobin 14.3 g/dL (12.0-16.0); Lymphocytes Percent Auto 37.6 % (20.5-60.0); Mean Corpuscular HGB Conc 33.4 g/dL (29.9-35.2); Mean Corpuscular Hemoglobin 30.9 pg (26.7-34.0); Mean Corpuscular Volume 92.4 fL (81.0-99.0); Monocytes Absolute Auto 0.4 10^3/uL (0.3-0.8); Monocytes Percent Auto 8.2 % (1.7-12.0); Neutrophils Absolute Auto 2.6 10^3/uL (1.4-6.5); Platelet Count 213 10^3/uL (150-450); Red Blood Count 4.63 10^6/uL (4.20-5.40); Red Cell Distribution Width 12.9 % (11.0-15.0); White Blood Count 5.2 10^3/uL (4.0-11.0)
[2025-03-12 06:40] LABS: Estimated Average Glucose 117 mg/dL; Glycohemoglobin A1C 5.7 % (4.5-6.2)
[2025-03-12 07:16] LABS: Alanine Aminotransferase 39 U/L (14-59); Albumin Globulin Ratio 1.2; Albumin Level 3.7 g/dL (3.4-5.0); Alkaline Phosphatase 46 U/L (46-116); Anion Gap 11.9; Aspartate Amino Transferase 20 U/L (15-37); BUN Creatinine Ratio 37.8; Bilirubin Total 0.4 mg/dL (0.2-1.0); Calcium 9.1 mg/dL (8.5-10.1); Chloride 102 mmol/L (98-107); Chol HDL Ratio 2.3; Cholesterol 170 mg/dL (<=200); Estimated GFR (African America >60 (>=60 mL/min/1.73m^2); Estimated GFR (Non-African Ame >60 (>=60 mL/min/1.73m^2); Globulin 3.1 g/dL; Glucose 96 mg/dL (74-106); HDL Cholesterol 73 mg/dL (40-60); Potassium 3.9 mmol/L (3.5-5.1); Sodium 140 mmol/L (136-145); Thyroid Stimulating Hormone 2.877 uIU/mL (0.358-3.740); Total Protein 6.8 g/dL (6.4-8.2); Triglycerides 76 mg/dL (<=150); VLDL CHOLESTEROL 15.2 mg/dL
== END 2025-03-12 06:07 | disposition home or self-care (01) ==
LOC: LAB 06:06
PROVIDERS: PCP Nurse Practitioner; Visit Provider Nurse Practitioner
DX: Z00.00 Encounter for general adult medical examination without abnormal findings (principal)
CPT/HCPCS: 36415; 80053; 80061; 83036; 84443; 85025

== ENCOUNTER 2025-05-21 19:52 | Outpatient (REF) | payer BC, SELFPAY ==
--- OUTSIDE RECORDS SUMMARY | 2025-05-21 15:00 | XMS_ITS | Encounter Summary ---
Author Organization [facility] Address [address] [place] [address] Care Team Providers Care Poultice Machine Operator Name Role Phone Shaikh AURELIANO Bateman Primary Care Provider [phone] Reason for Visit * Reason Comments Gynecologic Exam Encounter Details Date Type Department Care Team (Late st Contact Info) Description 05/21/2025 3:00 PM EDT Office Visit [facility] [address] [place] [phone] Triston Rob DO [address] [place], [place] [phone] Well woman exam with routine gynecological exam; Osteoporosis, post-menopausal ; H/O: hysterectomy Social History Tobacco Use Types Packs/Day Years Used Date Smoking Tobacco: Never Smokeless Tobacco: Never Alcohol Use Standard Drinks/Week Comments Yes 0 (1 standard drink = 0.6 oz pur e alcohol) Occasional Alcohol use Comments No Sex and Gender Information Value Date Recorded Sex Assigned at Female 05/08/2023 10:18 AM EDT Legal Sex Female 6:38 PM EDT Gender Identity Female 05/08/2023 10:18 AM EDT Sexual Orientation Not on file documented as of this encounter Last Filed Vital Signs Vital Sign Reading Time Taken Comments Blood Pressure 116/70 05/21/2025 3:00 PM EDT Pulse - - Temperature - - Respiratory Rate - - Oxygen Saturation - - Inhaled Oxygen Concentration - - Weight 66.7 kg (147 lb) 05/21/2025 3:00 PM EDT Height 162.6 cm (5' 4 ) 05/21/2025 3:00 PM EDT Body Mass Index 25.23 05/21/2025 3:00 PM EDT documented in this encounter Progress Notes * Alycia Schuler, SELF DEFENSE INSTRUCTOR - 05/21/2025 3:00 PM EDT Reason for Appointment: Patient ID: Oanh Fox is a 65 y.o. female who presents for Gynecologic Exam Patient presents today for Annual Exam. MEDICATIONS Current Outpatient Medications Medication Instructions B [id number] (BALANCED B COMPLEX PO) Cholecalciferol (D3 2000 PO) ezetimibe (ZETIA) 10 mg, Oral, Daily ALLERGIES Allergies Allergen Reactions Cefaclor Unknown Sulfa Antibiotics Hives and Unknown PROBLEMS Active Ambulatory Problems Diagnosis Date Noted Encounter for wellness examination in adult 02/25/2025 Resolved Ambulatory Problems Diagnosis Date Noted No [...] 11/2016 distal chervon - [facility] HYSTERECTOMY 06/2011 [place] KNEE SCOPE,ABRASN ARTHROPLASTY Right 09/14/2017 chondroplasty - Dr. Alcazar [place] KNEE SCOPE,SINGLE MENISECTOMY Right 09/14/2017 Dr. Alcazar TONSILLECTOMY 02/1981 TRIGGER FINGER RELEASE Right 04/08/2019 MF and RF- Dr. Acosta WISDOM TOOTH EXTRACTION 02/1985 wisdom teeth REVIEW OF SYSTEMS Review of Systems: Review of Systems Constitutional: Negative. HENT: Negative. Eyes: Negative. Respiratory: Negative. Cardiovascular: Negative. Gastrointestinal: Negative. Genitourinary: Negative. Musculoskeletal: Negative. Skin: Negative. Neurological: Negative. All other systems reviewed and are negative. Hematological: Negative. Endocrine: Negative. Allergic/Immunologic: Negative. OBJECTIVE Objective: Physical Exam Constitutional: Appearance: Normal appearance. She is well-developed. Genitourinary: Vulva normal. Vaginal cuff intact. Cervix is absent. Uterus is absent. Cardiovascular: Rate and Rhythm: Normal rate and [...] nursing note reviewed. Exam conducted with a drill sergeant present. Vitals: Estimated body mass index is 25.23 kg/m?? as calculated from the following: Height as of this encounter: 5' 4 . Weight as of this encounter: 147 lb. BP: 116/70 No LMP recorded. Patient has had a hysterectomy. ASSESSMENT & PLAN ICD-10-CM 1. Well woman exam with routine gynecological exam Z01.419 THIN PREP TIS PAP AND HR HPV DNA 2. Osteoporosis, post-menopausal M81.0 DEXA bone density 3. H/O: hysterectomy Z90.710 Orders Placed This Encounter Procedures DEXA bone density Annual Wellness Exam (Post Hysterectomy): Patient presents today for routine annual exam. Patient states she has complaints of cystocele. Patients vitals were reviewed and within normal limits. Growth and development is noted to be appropriate for age. Menstrual history is noted to be obsolete due to patients history of hysterectomy. No mental health concerns was expressed. Pap Smear: Speculum was inserted into the vagina and pap was obtained without difficulty. HPV testing was performed per guidelines. Patient was advised that pap results could take anywhere from 7 to 10 days to receive and our office will reach out to the patient with those once we have them. Patient can also view results via MyChart. I reinforced importance of condom use for STI prevention. Patient declined cultures to be performed with today's visit. Breast Exam: Upon examination, clinical breast exam was noted to be normal. Patient was counseled on breast self-awareness, including the importance of knowing what is normal for her own breasts and promptly reporting any changes such as new lumps, skin dimpling, nipple discharge, or pain. Screening mammogram recommended annually beginning at age 40 or earlier if risk factors are present. Discussed signs and symptoms of breast cancer and when to seek medical attention. Answered all patient questions. Follow Up: Patient is to return to our office in one year for annual exam unless needed otherwise. Documented by Alycia Schuler LPN on behalf of: Triston Rob DO documented in this encounter Plan of Treatment Upcoming Encounters Date Type Department Care Team (Late st Contact Info) Description 05/26/2026 3:00 PM EDT Procedure Visit [facility] [address] [place] [address] Triston Rob DO [address] [facility] [place] [address] Scheduled Orders Name Type Priority Associated Diagnoses Orde r Schedule DEXA bone density Imaging Routine Osteoporosis, post-menopausal Expected: 05/21/2025 (Approximate), Expires: 05/21/2026 THIN PREP TIS PAP AND HR HPV DNA Pathology and Cytology Routine Well woman exam with routine gynecological exam Ordered: 05/21/2025 documented as of this encounter Visit Diagnoses Diagnosis Well woman exam with routine gynecological exam Routine gynecological examination Osteoporosis, post-menopausal Senile osteoporosis H/O: hysterectomy Acquired absence of both cervix and uterus documented in this encounter Care Teams Poultice Machine Operator Relationship Specialty Start Date End Date Shaikh Bateman MD [address] [place] [address] PCP - General 05/08/23 documented as of this encounter
--- OUTSIDE RECORDS SUMMARY | 2025-05-21 19:56 | XMS_ITS | Clinical Summary ---
Author Organization [facility] Address [address] [place] [address] Care Team Providers Care Computed Tomography Technologist Name Role Phone Shaikh AURELIANO Bateman Primary Care Provider [phone] Allergies Active Allergy Reactions Criticality Noted Date Comments Cefaclor Unknown 05/15/2023 Sulfa Antibiotics Hives,Unknown 05/15/2023 Medications B Zaclyev-Fsafea-CT (BALANCED B COMPLEX PO) Active Cholecalciferol (D3 2000 PO) Active ezetimibe (Zetia) 10 MG tabletIndications:H yperlipidemia, unspecified hyperlipidemia type Take 1 tablet (10 mg) by mouth Daily 90 tablet 5 09/01/20 25 Active Active Problems Problem Noted Date Diagnosed Date Encounter for wellness examination in adult 11/2024 Encounters Date Type Department Care Team Description 05/21/2025 3:00 PM EDT Office Visit [facility] T [facility] [address] [place] [address] Clementine Rob DO Well woman exam with routine gynecological exam; Osteoporosis, post-menopausal ; H/O: hysterectomy 05/21/2025 Bamboo flowsheet [facility] MAY [address] [place] [address] Clementine Rob DO 03/24/2025 Telephone [facility] [address] [place] [address] Sylvia Yousif NP 03/12/2025 Clinisync Result Encounter [facility]OM[facility] External Department Unsolicited Sylvia Yousif NP 03/05/2025 Refill [facility] [address] [place] [address] Inder Robles MD Hyperlipidemia, unspecified hyperlipidemia type 03/03/2025 Clinisync Result Encounter NOM[facility] External Department Unsolicited Clementine Rob, 02/25/2025 Orders Only [facility] [address] [place] [address] Sylvia Yousif NP Encounter for wellness examination in adult (Primary Dx) 02/25/2025 Telephone [facility] [address] [place] [address] Sylvia Yousif NP from Last 3 Months [...] Mass Index 25.23 05/21/2025 3:00 PM EDT Plan of Treatment Upcoming Encounters Date Type Department Care Team (Late st Contact Info) Description 05/26/2026 3:00 PM EDT Procedure Visit [facility]inder [facility]BG[facility] [address] [place] [address] Clementine Rob DO [address] [place] [address] Procedures Procedure Name Priority Date/Time Associated Diagnosis Comments ALL THYROID STIM HORMONE Routine 03/12/2025 6:15 AM EDT ALL LIPID PROFILE (FASTING) Routine 03/12/2025 6:15 AM EDT [facility] CMP (CMP) (FOR REMOTE [facility] USE) Routine 03/12/2025 6:15 AM EDT MLR HEMOGLOBIN A1C Routine 03/12/2025 6: 15 AM EDT ALL CBC WITH AUTO DIFF Routine 6:15 AM EDT MM TOMOSYNTHESIS SCREENING BI 03/03/2025 3:59 PM EDT from Last 3 Months Results * MLR HEMOGLOBIN A1C (03/12/2025 6:15 AM EDT) GLYCOHEMOGLOBIN A1C 5.7 4.5 - 6.2 % [facility] Comment: ADA RECOMMENDED LIMIT 4.0 - 6.0 ADA THERAPEUTIC TARGET < 7.0 ACTION SUGGESTED > 7.0 ESTIMATED AVERAGE GLUCOSE 117 mg/dL [facility] 03/12/2025 6:15 AM EDT 03/12/2025 6:17 AM EDT Narrative [facility] - 03/12/2025 6:55 AM EDT us Sylvia Yousif NP [facility] Final Result [facility] * (ABNORMAL) [facility] CMP (CMP) (FOR REMOTE [facility] USE) (03/12/2025 6:15 AM EDT) SODIUM 140 136 - 145 mmol/L [facility] POTASSIUM 3.9 3.5 - 5.1 mmol/L [facility] CHLORIDE 102 98 - 107 mmol/L [facility] CARBON DIOXIDE 30.0 21.0 - 32.0 mmol/L [facility] ANION GAP 11.9 TBH GLUCOSE 96 74 - 106 mg/dL [facility] BLOOD UREA NITROGEN 28.0(H) 7.0 - 18.0 mg/dL [facility] CREATININE 0.74 0.55 - 1.02 mg/dL [facility]H TBH EGFR-AF NICARAGUAN >60 >=60 mL/min/1. 73m 2 TBH TBH EGFR-NON AF NICARAGUAN >60 >=60 mL/min/1. 73m 2 [facility]H BUN CREATININE RATIO 37.8 TBH CALCIUM 9.1 8.5 - 10.1 mg/dL [facility] BILIRUBIN TOTAL 0.4 0.2 - 1.0 mg/dL [facility] ASPARTATE AMINO TRANSFERASE 20 15 - 37 U/L [facility]H ALANINE AMINOTRANSFERASE 39 14 - 59 U/L [facility] ALKALINE PHOSPHATASE 46 46 - 116 U/L [facility] TOTAL PROTEIN 6.8 6.4 - 8.2 g/dL [facility] ALBUMIN LEVEL 3.7 3.4 - 5.0 g/dL [facility] GLOBULIN 3.1 g/dL TBH ALBUMIN GLOBULIN RATIO 1.2 [facility] 03/12/2025 6:15 AM EDT 03/12/2025 6:17 AM EDT Narrative [facility] - 03/12/2025 7:21 AM EDT us Sylvia Yousif NP [facility] Final Result [facility] * ALL THYROID STIM HORMONE (03/12/2025 6:15 AM EDT) THYROID STIMULATING HORMONE 2.877 0.358 - 3.740 uIU/mL [facility] 03/12/2025 6:15 AM EDT 03/12/2025 6:17 AM EDT Narrative [facility] - 03/12/2025 7:21 AM EDT Sylvia Yousif ENGINEERING SECRETARY CL[facility] Final Result [facility] * (ABNORMAL) ALL LIPID PROFILE (FASTING) (03/12/2025 6:15 AM EDT) TRIGLYCERIDES 76 <=150 mg/dL TBH CHOLESTEROL 170 <=200 mg/dL TB HDL CHOLESTEROL 73(H) 40 - 60 mg/dL TB Comment: > or =60 mg/dl - LOW CARDIOVASCULAR RISK <40 mg/dl - HIGH CARDIOVASCULAR RISK LDL CHOLESTEROL CALCULATED 82.0 mg/dL TB Comment: <100 mg/dl OPTIMAL 100-129 mg/dl NEAR OR ABOVE OPTIMAL 130-159 mg/dl BORDERLINE HIGH 160-189 mg/dl HIGH >190 mg/dl VERY HIGH VLDL CHOLESTEROL 15.2 mg/dL TB CHOL HDL RATIO 2.3 TB Comment: 3.3 - 4.4 LOW RISK 4.4 - 7.1 AVERAGE RISK 7.1 - 11.0 MODERATE RISK >11.0 HIGH RISK 03/12/2025 6:15 AM EDT 03/12/2025 6:17 AM EDT Narrative CLIN[facility] - 03/12/2025 7:21 AM EDT Sylvia Yousif NP CL[facility] Final Result Performing Organization Address City/[facility]/ZIP Co de Phone Number [facility] * ALL CBC WITH AUTO DIFF (03/12/2025 6:15 AM EDT) TBH WBC 5.2 4.0 - 11.0 10 3/uL TBH TBH RBC 4.63 4.20 - 5.40 10 6/uL TBH TBH HGB 14.3 12.0 - 16.0 g/dL TBH TBH HCT 42.8 36.0 - 48.0 % TBH TBH MCV 92.4 81.0 - 99.0 fL TBH TBH MCH 30.9 26.7 - 34.0 pg TBH TBH MCHC 33.4 29.9 - 35.2 g/dL TBH TBH RDW 12.9 11.0 - 15.0 % TBH TBH PLT 213 150 - 450 10 3/uL TBH TBH MPV 10.0 9.5 - 13.5 fL TBH NEUTROPHILS PERCENT AUTO 50.0 43.0 - 75.0 % TBH LYMPHOCYTES PERCENT AUTO 37.6 20.5 - 60.0 % TBH MONOCYTES PERCENT AUTO 8.2 1.7 - 12.0 % TBH TBH EO % 3.4 0.9 - 7.0 % TBH BASOPHILS PERCENT AUTO 0.8 0.2 - 2.0 % TBH IMMATURE GRANULOCYTES PCT AUTO 0.0 0.0 - 0.5 % TBH NEUTROPHILS ABSOLUTE AUTO 2.6 1.4 - 6.5 10 3/uL TBH LYMPHOCYTES ABSOLUTE AUTO 2.0 1.2 - 3.8 10 3/uL TBH MONOCYTES ABSOLUTE AUTO 0.4 0.3 - 0.8 10 3/uL TBH TBH EO # 0.2 0.0 - 0.7 10 3/uL TBH BASOPHILS ABSOLUTE AUTO 0.0 0.0 - 0.1 10 3/uL TBH IMMATURE GRANULOCYTES ABS AUTO 0.00 0.00 - 0.03 10 3/uL TBH 03/12/2025 6:15 AM EDT 03/12/2025 6:17 AM EDT Narrative CLINISYNC - 03/12/2025 6:24 AM EDT us Sylvia Nica FABIAN CLINISYNC Final Result [facility] * MM TOMOSYNTHESIS SCREENING BI (03/03/2025 3:59 PM EDT) Anatomical Region Laterality Modality Other 03/03/2025 3:59 PM EDT Narrative 03/03/2025 4:00 [place] [address] Mammography Report Signed Patient: OANH SCHMITT MR#: [id number] : 1960 Acct:[id number] Age/Sex: 64 / F ADM Date: 03/03/25 Loc: MAMMO Attending Dr: Clementine Rob D.O. Ordering Physician: Clementine Rob D.O. Results: Date of Service: 03/03/25 Follow Up: Procedure(s): MM tomosynthesis screening BI Accession Number(s): [id number] cc: Clementine Rob D.O.; Physician,Non-Staff Candida Patient Name: OANH SCHMITT MR#: [id number] : 1960 Exam Date: 03/03/2025 Ordering Doctor: [...] ureter cancer at age 52. LOCATION: [facility] BREAST COMPOSITION: There are scattered areas [...] Signed By: 03/03/25 1600 DD/ 1559 TD/TT: Mechanical Unit Repairer: Procedure Note Radiology, Radiologist, MD - 03/03/2025 [place] [address] Mammography Report Signed Patient: OANH SCHMITT LMR#: [id number] : 2Acct:[id number] Age/Sex: 64 / FADM Date: 03/03/25 Loc: MAMMO Attending Dr: Clementine Rob D.O. Ordering Physician: Clementine Rob D.O.Results: Date of Service: 03/03/25Follow Up: Procedure(s): MM tomosynthesis screening BI Accession Number(s): [id number] cc: Clementine Rob D.O.; Physician,Non-Staff MBrendon Patient Name: OANH SCHMITT MR#: [id number] : 1960 Exam Date: 03/03/2025 Ordering Doctor: DR CLEMENTINE ROB . RADIOLOGY REPORT PROCEDURE: MM TOMOSYNTHESIS SCREENING BI COMPARISON: MM TOMOSYNTHESIS SCREENING BI, 02/26/2024. MG MAMM [id number] [place] CAD, 02/14/2023. MG MAMM SCREEN 3D [place] CAD, 03/02/2022. MG MAMM BILSCRN W CAD DIG, 12/11/2013. INDICATIONS: Screening Calculator Name NCI Breast Cancer Risk Assessment Tool 5 Year Breast Cancer Risk 1.70% Lifetime Breast Cancer Risk 7.70% Personal Breast Cancer No Personal Ovarian Cancer No Treatments None Family Cancers Aunt-maternal with breast cancer at age 52; Mother with ureter cancer at age 50. LOCATION: [facility] BREAST COMPOSITION: There are scattered areas of fibroglandulardensity. FINDINGS: RIGHT BREAST: No significant suspicious finding. [...] 15:59 Dictated By: Raleigh Cabral D.O. Signed By:03/03/25 1600 DD/ 1559 TD/TT: Mechanical Unit Repairer: us Clementine Rob DO [facility] Final Result from Last 3 Months Insurance BCBS Care Teams Computed Tomography Technologist Relationship Specialty Start Date End Date Shaikh Bateman MD [address] [place] [address] PCP - General 05/08/23
--- OUTSIDE RECORDS SUMMARY | 2025-05-21 19:56 | XMS_ITS | Encounter Summary ---
Author Organization [facility] Address [address] [place] [address] Care Team Providers Care Doctor Of Nursing Practice Name Role Phone Shaikh AURELIANO Bateman Primary Care Provider Encounter Details Date Type Department Care Team (Late Contact Info) Description 05/20/2024 Abstract ALESSANDRO MAY [address] [place] [id number] Triston Rob DO [address], [place] [address] Social History Tobacco Use Types Packs/Day Years [...] Department Care Team (Late Contact Info) Description 05/26/2026 3:00 PM EDT Procedure Visit ALESSANDRO MAY [address] [place] [address] Triston Rob DO [address], [facility]11 documented as of this encounter Visit Diagnoses Not on filedocumented in this encounter Care Teams Doctor Of Nursing Practice Relationship Specialty Start Date End Date Shaikh Bateman MD [address] [place] [address] PCP - General 05/08/23 documented as of this encounter
--- OUTSIDE RECORDS SUMMARY | 2025-05-21 19:56 | XMS_ITS | Encounter Summary ---
Author Organization [facility] Address [address] [place] [address] Care Team Providers Care Scrubbing Machine Operator Name Role Phone Shaikh AURELIANO Bateman Primary Care Provider [phone] Encounter Details Date Type Department Care Team (Late Contact Info) Description 05/21/2025 Bamboo flowsheet ALESSANDRO MAY [address] [place] [address] Triston Rob DO [address], [facility]11 Social History Tobacco Use Types Packs/Day Years [...] PM EDT Procedure Visit ALESSANDRO MAY [address] [place] [address] Triston Rob DO [address] [place] [address] documented as of this encounter Visit Diagnoses Not on filedocumented in this encounter Care Teams Scrubbing Machine Operator Relationship Specialty Start Date End Date KieranwShaikh rodriguez MD [address] [place] [address] PCP - General 05/08/23 documented as of this encounter
--- OUTSIDE RECORDS SUMMARY | 2025-05-21 19:56 | XMS_ITS | Encounter Summary ---
Author Organization [facility] Address [address] [place] [address] Care Team Providers Care Artist'S Model Name Role Phone Shaikh AURELIANO Bateman Primary Care Provider [phone] Encounter Details Date Type Department Care Team (Late st Contact Info) Description 02/29/2024 Clinisync Result Encounter NOMS External Department Unsolicited Shaikh Bateman MD [address] [place] [address] Social History Tobacco Use Types Packs/Day Years [...] Description 05/26/2026 3:00 PM EDT Procedure Visit [facility] T [facility] [address] [place] [address] Triston Rob DO [address] [place], [place] [address] documented as of this encounter Procedures Procedure Name Priority Date/Time Associated Diagnosis Comments MM TOMOSYNTHESIS SCREENING BI 02/29/2024 1:24 PM EDT documented in this encounter Results * MM TOMOSYNTHESIS SCREENING BI (02/29/2024 1:24 PM EDT) Anatomical Region Laterality Modality Other 02/29/2024 1:24 PM EDT Narrative 02/29/2024 1:25 [place] [address] Mammography Report Signed Patient: OANH SCHMITT MR#: [id number] : 1960 Acct:[id number] Age/Sex: 63 / F ADM Date: 02/26/24 Loc: MAMMO Attending Dr: Shaikh Fransico Tirado Ordering Physician: Shaikh Candida Bateman Results: Date of Service: 02/26/24 Follow Up: Procedure(s): MM tomosynthesis screening BI Accession Number(s): [id number] cc: Shaikh Candida Bateman Patient Name: OANH SCHMITT MR#: [id number] : 1960 Exam Date: 02/26/2024 Ordering Doctor: SHAIKH Katlheen BATEMAN . RADIOLOGY REPORT PROCEDURE: MM TOMOSYNTHESIS [...] ureter cancer at age 52. LOCATION: The [facility] BREAST COMPOSITION: There are scattered areas [...] Signed By: 02/29/24 1325 DD/ 1324 TD/TT: Yeast Fermentation Attendant: Procedure Note Radiology, Radiologist, MD - 02/29/2024 [place] [address] Mammography Report Signed Patient: OANH SCHMITT LMR#: [id number] : 1960cct:[id number] Age/Sex: 63 / FADM Date: 02/26/24 Loc: MAMMO Attending Dr: Shaikh Fransico Tirado Ordering Physician: Shaikh Candida BatemanResults: Date of Service: 02/26/24Follow Up: Procedure(s): MM tomosynthesis screening BI Accession Number(s): [id number] cc: Shaikh Candida Bateman Patient Name: OANH SCHMITT MR#: [id number] : 1960 Exam Date: 02/26/2024 Ordering Doctor: [...] ureter cancer at age 52. LOCATION: [facility] BREAST COMPOSITION: There are scattered areas [...] M.D. Signed By:02/29/24 1325 DD/ 1324 TD/TT: Yeast Fermentation Attendant: Shaikh Fransico BEDOYA [facility] Final Result documented in this encounter Visit Diagnoses Not on filedocumented in this encounter Care Teams Artist'S Model Relationship Specialty Start Date End Date Shaikh Bateman MD [address] [place] [address] PCP - General 05/08/23 documented as of this encounter
--- OUTSIDE RECORDS SUMMARY | 2025-05-21 19:56 | XMS_ITS | Encounter Summary ---
Author Organization [facility] Address [address] [place] [address] Care Team Providers Care Ware Tester Name Role Phone Shaikh AURELIANO Bateman Primary Care Provider [phone] Encounter Details Date Type Department Care Team (Late Contact Info) Description 02/14/2023 Clinisync Result Encounter NOMS EXT Triston Kwon, DO [address], [facility]11 Social History Tobacco Use Types Packs/Day [...] EDT Procedure Visit [facility] Bhupinder OBGYN [address] [place] [address] Triston Rob DO [address] [place] [address] documented as of this encounter Procedures Procedure [...] : DR TRISTON ROB . Admission #: [id number] Family : Order #: [id number] CLICK HERE TO VIEW EXAM RADIOLOGY REPORT [...] ureter cancer at age 52. LOCATION: The [facility] BREAST COMPOSITION: Scattered areas fibroglandular density. [...] : DR TRISTON ROB . Admission #: [id number] Family : Order #: [id number] CLICK HERE TO VIEW EXAM RADIOLOGY REPORT [...] ureter cancer at age 52. LOCATION: [facility] BREAST COMPOSITION: Scattered areas fibroglandular density. [...] Isra Norman M.D. on 02/15/2023 at 11:05 Triston Rob DO [facility] Final Result documented in this encounter Visit Diagnoses Not on filedocumented in this encounter Care Teams Ware Tester Relationship Specialty Start Date End Date Shaikh Bateman MD [address] [place] [address] PCP - General 05/08/23 documented as of this encounter
--- OUTSIDE RECORDS SUMMARY | 2025-05-21 19:56 | XMS_ITS | Encounter Summary ---
Author Organization [facility] Address [address] [place] [address] Care Team Providers Care Inside Barrel Lathe Operator Name Role Phone Shaikh AURELIANO Bateman Primary Care Provider [phone] Encounter Details Date Type Department Care Team (Late Contact Info) Description 05/30/2024 Orders Only ALESSANDRO MAY [address] [place] [address] Shannon Lennon LPN [address] [place] [address] Social History Tobacco Use Types Packs/Day Years [...] 3:00 PM EDT Procedure Visit NOMMaria T MAY [address] [place] [address] Triston Rob DO [address] [place], [facility]11 documented as of this encounter Procedures Procedure Name Priority Date/Time Associated Diagnosis Comments PAP SMEAR Routine 05/20/2024 12:00 AM EDT documented in this encounter Results * Pap Smear (05/20/2024 12:00 AM EDT) Swab Cervical swab / Unknown Darron Nurse [facility] LAB CYTOLOGY ORDERABLES Final Result EXTERNAL LAB documented in this encounter Visit Diagnoses Not on filedocumented in this encounter Care Teams Inside Barrel Lathe Operator Relationship Specialty Start Date End Date Shaikh Bateman MD [address] [place] [address] PCP - General 05/08/23 documented as of this encounter
--- OUTSIDE RECORDS SUMMARY | 2025-05-21 19:58 | XMS_ITS | CCD ---
Author Organization [facility] Care Team Providers Care Seed Expert Name Role Phone DARRON ., DR SPRING [...] REED ., DR SALVADOR Pfeiffer Consulting Unavailable ODESSA, DR KELVIN Corral Consulting Unavailable DARRON ., DR SPRING Admitting Unavailable DARRON ., DR SPRING Attending Unavailable REED ., DR SALVADOR Pfeiffer Primary Care Unavailable DARRON ., DR SPRING Consulting Unavailable DARRONCLEMENTINE Attending Unavailable Will Bateman MDikh Primary Care Provider [phone] Allergies Allergy Classification Reported Allergen(s) Allergy Type Date of Onset Reaction(s) Facility (2 sources) Cefaclor Drug Allergy [facility] Repository (11 sources) Cefaclor Drug Allergy 3 Unknown [facility] Work Phone: (11 sources) Sulfonamides (Antibiotic) Drug Allergy 3 Hives, Unknown [facility] Medications Current Medications Medication Drug Class(es) Dates Sig (Normalized) Sig (Original) B Ffsegzr-Ouykqr-LR (BALANCED B COMPLEX PO) (11 sources) B Complex-Biotin -FA (BALANCED B COMPLEX PO) Active Cholecalciferol (11 sources) Vitamin D Cholecalciferol (D3 2000 PO) Active ezetimibe 10 mg oral tablet (12 sources) Dietary Cholesterol Absorption Inhibitor Start: 03-19-2024 End: 09-01-2025 take 1 tablet by mouth once daily ezetimibe (Zetia) 10 MG tablet Indications: Hyperlipidemia, unspecified hyperlipidemia type Take 1 tablet (10 mg) by mouth Daily 90 tablet 03/05/2025 09/01/2025 Active Completed/Discontinued Medications Medication Drug Class(es) Dates Sig (Normalized) Sig (Original) [place] Bergamot 650 MG tablet (3 sources) End: 05-20-2024 [place] Bergamot 650 MG tablet [place] Berg[place]ot 05/20/2024 Discontinued (Other) [place] Bergamot 650 MG tablet [place] Berg[place]ot Active Garlic preparation (3 sources) Non-Standardized [...] Documented Date Episodic/Chronic Disorders of lipid metabolism (5 sources) Pure hypercholesterolemia, unspecified; Translations: [Hyperlipidemia] Onset: 06-01-2022 Chronic Osteoporosis (2 sources) Postmenopausal osteoporosis; Translations: [Age-related osteoporosis without current pathological fracture] 05-21-2025 Chronic Past or Other Problems Problem Classification [...] Test Name Value Interpretation Reference Range Facility ALL CBC WITH AUTO DIFFon BASOPHILS ABSOLUTE AUTO 0 [facility] Basophils/100 WBC (Bld) 0.8 % 0.2 - 2.0 % [facility] Eosinophils/100 WBC (Bld) 3.4 % 0.9 - 7.0 % [facility] Erythrocyte distribution width (RBC) [Ratio] 12.9 % 11.0 - 15.0 % [facility] Hematocrit (Bld) [Volume fraction] 42.8 % 36.0 - 48.0 % [facility] Hemoglobin (Bld) [Mass/Vol] 14.3 g/dL 12.0 - 16.0 g/dL [facility] IMMATURE GRANULOCYTES ABS AUTO 0 [facility] Immature granulocytes/100 WBC (Bld) 0 % 0.0 - 0.5 % [facility] LYMPHOCYTES ABSOLUTE AUTO 2 [facility] Lymphocytes/100 WBC (Bld) 37.6 % 20.5 - 60.0 % [facility] MCH (RBC) [Entitic mass] 30.9 pg 26.7 - 34.0 pg [facility] MCHC (RBC) [Mass/Vol] 33.4 g/dL 29.9 - 35.2 g/dL [facility] MCV (RBC) [Entitic vol] 92.4 fL 81.0 - 99.0 fL [facility] MONOCYTES ABSOLUTE AUTO 0.4 [facility] Monocytes/100 WBC (Bld) 8.2 % 1.7 - 12.0 % [facility] NEUTROPHILS ABSOLUTE AUTO 2.6 [facility] Neutrophils/100 WBC (Bld) 50 % 43.0 - 75.0 % [facility] Platelet mean volume (Bld) [Entitic vol] 10 fL 9.5 - 13.5 fL [facility] TBH EO # 0.2 [facility] TB PLT 213 [facility] TB RBC 4.63 [facility] TB WBC 5.2 [facility] MM TOMOSYNTHESIS SCREENING B Ion 03-03-2025 [facility] [address] [place] [address] Mammography Report Signed Patient: OANH FOX MR#: [id number] : 1960 Acct:[id number] Age/Sex: 64 / F ADM Date: 03/03/25 Loc: MAMMO Attending Dr: Clementine Rob D.O. Ordering Physician: Clementine Rob D.O. Results: Date of Service: 03/03/25 Follow Up: Procedure(s): MM tomosynthesis screening BI Accession Number(s): [id number] cc: Clementine Rob D.O.; Physician,Non-Staff [place] Patient Name: OANH FOX MR#: [id number] : 1960 Exam Date: 03/03/2025 Ordering Doctor: DR CLEMENTINE ROB . RADIOLOGY REPORT PROCEDURE: MM TOMOSYNTHESIS SCREENING BI COMPARISON: MM TOMOSYNTHESIS SCREENING BI, 02/26/2024. MG MAMM SCREEN 3D EVNES CAD, 02/14/2023. MG MAMM SCREEN 3D EVENS [...] ureter cancer at age 52. LOCATION: [facility] BREAST COMPOSITION: There are scattered areas of [...] Signed By: 03/03/25 1600 DD/ 1559 TD/TT: Car Hop: [facility] Radiology, Radiologist, MD - 03/03/2025 [place] [address] Mammography Report Signed Patient: OANH FOX MR#: [id number] : 1960 Acct:[id number] Age/Sex: 64 / F ADM Date: 03/03/25 Loc: MAMMO Attending Dr: Clementine Rob D.O. Ordering Physician: Clementine Rob D.O. Results: Date of Service: 03/03/25 Follow Up: Procedure(s): MM tomosynthesis screening BI Accession Number(s): [id number] cc: Clementine Rob D.O.; Physician,Non-Staff [place] Patient Name: OANH FOX MR#: [id number] : 1960 Exam Date: 03/03/2025 Ordering Doctor: DR CLEMENTIEN ROB . RADIOLOGY REPORT PROCEDURE: MM TOMOSYNTHESIS [...] ureter cancer at age 52. LOCATION: [facility] BREAST COMPOSITION: There are scattered areas of [...] Cabral D.O. Signed By: 03/03/25 1600 DD/ 9009 TD/TT: Car Hop: [facility] Radiology Study observation (narrative) [facility] MM TOMOSYNTHESIS SCREENING B IOrdered By: Radiologist Radiology on 03-03-2025 [facility] Work Phone: IGP,APTIMA HPV,AGE GDLNon AGE GDLN ACOG TESTING Note . [facility] Comment on above: TESTS RESULT FLAG UN ITS REF RANGE LAB Clinician Provided Cytology Information Source.............Vagina No. of containers..01 ThinPrep Vial Age Algo ACOG Dipika... 30-65 01 FLAG LEGEND: L-Low Normal,H-High Normal,LL-Alert Low,HH-Alert High <-Panic Low,>-Panic High,A-Abnormal,AA-Critical Abnormal Performed at: 01 =G [facility] [address] Kelsy Mccann MD, HPV APTIMA Negative Negative [facility] Comment on above: This nucleic acid am plification test detects fourteen high- risk HPV types (16,18,31,33,35,39,45,51,52,56,58,59,66,68) without differentiation. Performed at: =G - [facility] [address] [id number] Job Press Feeder: Kelsy Mccann MD, Phone: [phone] Performed at: [address] [id number] [employer] Press Feeder: Kelsy Mccann MD, Phone: [phone] IGP, APTIMA HPV, RFX 16/18,45 Note . [facility] Comment on above: TESTS RESULT FLAG UN ITS REF RANGE LAB DIAGNOSIS: 02 NEGATIVE FOR INTRAEPITHELIAL LESION OR MALIGNANCY. Specimen adequacy: 02 Satisfactory for evaluation. Endocervical and/or squamous metaplastic cells (endocervical component) are present. Performed by: Carli Dueñas, Fiber Worker ([facility]) . 02 Note: Note 02 The Pap [...] High <-Panic Low,>-Panic High,A-Abnormal,AA-Critical Abnormal Performed at: [facility] [place] [address] Kelsy Mccann MD, SPATULA-ALONE VAGINA [facility] [...] S F Oxacillin <=0.25 S F Normal [facility] Comment on above: Performed By: #### U RCX #### [facility] [address] [place] [address] Dr. El Voss LIPID PROFILEon 06-01-2022 CHOL-HDL RATIO NORM SEE BELOW Normal [facility] Comment on above: Result Comment: 3.3 - 4.4 LOW RISK 4.4 - 7.1 AVERAGE RISK 7.1 - 11.0 MODERATE RISK >11.0 HIGH RISK Performed By: #### L IPID, AST #### [facility] [address] [place] [address] Dr. El Voss Cholesterol [Mass/Vol] 159 mg/dL Normal <=200 [facility] Comment on above: Performed By: #### L IPID, AST #### [facility] [address] [place] [address] Dr. El Voss Cholesterol in HDL [Mass/Vol] 71 mg/dL Critically high 40-60 [facility] Comment on above: Performed By: #### L IPID, AST #### [facility] [address] [place] [address] Dr. El Voss Cholesterol in LDL [Mass/Vol] 76.2 mg/dL Normal [facility] Comment on above: Performed By: #### L IPID, AST #### [facility] [address] [place], [place] [address] Dr. El Voss Cholesterol.total/Ch olesterol in HDL [Mass ratio] 2.2 {ratio} Normal [facility] Comment on above: Performed By: #### L IPID, AST #### [facility] [address] [place] [address] Dr. El Voss HDL NORMAL > or = 60 mg/dl - LO W CARDIOVASCULAR RISK <40 mg/dl - HIGH CARDIOVASCULAR RISK Normal [facility] Comment on above: Performed By: #### L IPID, AST #### [facility] [address] [place] [address] Dr. El Voss LDL CALC NORMAL SEE BELOW Normal [facility] Comment on above: Result Comment: <100 mg/dl OPTIMAL 100 - 129 mg/dl NEAR OR ABOVE OPTIMAL 130 - 159 mg/dl BORDERLINE HIGH 160 - 189 mg/dl HIGH >190 mg/dl VERY HIGH Performed By: #### L IPID, AST #### [facility] [address] [place] [address] Dr. El Voss Triglyceride [Mass/Vol] 59 mg/dL Normal <=150 [facility] Comment on above: Performed By: #### L IPID, AST #### [facility] [address] [place] [address] Dr. El Voss VLDL CALC 11.8 mg/dL Normal [facility] Comment on above: Performed By: #### L IPID, AST #### [facility] [address] [place] [address] Dr. El Voss SGOTon 06-01-2022 AST [Catalytic activity/Vol] 16 U/L Normal 15-37 [facility] Comment on above: Performed By: #### L IPID, AST #### [facility] [address] [place] [address] Dr. El Voss PAP ACOG PANEL 2: 30 to 65on 05-13-2022 . . Normal [facility] Comment on above: Result Comment: Perf ormed at: WB Performed By: #### [id number] #### [facility] [address] [place] [address] Dr. El Voss Age Gdln ACOG Testing 30-65 Normal [facility] Comment on above: Performed By: #### [id number] #### [facility] [address] [place] [address] Dr. El Voss DIAGNOSIS: Comment Normal [facility] Comment on above: Result Comment: NEGA TIVE FOR INTRAEPITHELIAL LESION OR MALIGNANCY. Performed at: WB Performed By: #### [id number] #### [facility] [address] [address] [address] El Voss HPV Aptima Negative Normal Negative [facility] Comment on above: Result Comment: This nucleic acid amplification test detects fourteen high-risk HPV types (16,18,31,33,35,39,45,51,52,56,58,59,66,68) without differentiation. Performed at: =G Performed By: #### [id number] #### [facility] [address] [place] [address] Dr. El Voss Methodology: Comment Normal [facility] Comment on above: Result Comment: This liquid based ThinPrep(R) pap test was screened with the use of an image guided system. Performed at: WB Performed By: #### 4 [id number] #### [facility] [address] [place] [address] Dr. El Voss Note: Comment [facility] Comment on above: Result Comment: The Pap smear is a screening test designed to aid in the detection of premalignant and malignant conditions of the uterine cervix. It is not a diagnostic procedure and should not be used as the sole means of detecting cervical cancer. Both false-positive and false-negative reports do occur. . Performed at: WB Performed By: #### [id number] #### [facility] [address] [place] [address] Dr. El Voss Performed by: Comment Normal [facility] Comment on above: Result Comment: Dee Cui, Fiber Worker ([facility]) Performed at: WB Performed By: #### [id number] #### [facility] [address] [place] [address] Dr. El Voss Specimen adequacy: Comment Normal [facility] Comment on above: Result Comment: Sati sfactory for evaluation. Endocervical and/or squamous metaplastic cells (endocervical component) are present. Performed at: WB Performed By: #### [id number] #### [facility] [address] [address] [address] El Voss MG MAMM SCREEN 3D EVENS CADon 03-02-2022 MG MAMM SCREEN 3D EVENS CAD Patient: OANH FOX Exam Date: 03/02/2022 : 1960 Gender:F Ordering : DR SALVADOR REED . Admission #: [id number] Family : Order #: [id number] CLICK HERE TO VIEW EXAM RADIOLOGY REPORT [...] ureter cancer at age 52. LOCATION: [facility] BREAST COMPOSITION: Scattered areas fibroglandular density. FINDINGS: [...] MD on 03/02/2022 at 10:18 Normal [facility] CBC AUTO DIFFon 03-01-2022 BASO # 0.1 103/ul Normal 0.0-0.1 [facility] Comment on above: Performed By: #### D ATCBC #### [facility] [address] [address] [address] El Voss Basophils/100 WBC (Bld) 1.1 % Normal 0.2-2.0 [facility] Comment on above: Performed By: #### D ATCBC #### [facility] [address] [place] [address] Dr. El Voss EO # 0.1 103/ul Normal 0.0-0.7 [facility] Comment on above: Performed By: #### D ATCBC #### [facility] [address] [place] [address] Dr. El Voss Eosinophils/100 WBC (Bld) 2.6 % Normal 0.9-7.0 [facility] Comment on above: Performed By: #### D ATCBC #### [facility] [address] [place] [address] Dr. El Voss Erythrocyte distribution width (RBC) [Ratio] 12.7 % Normal 11.0-15.0 [facility] Comment on above: Performed By: #### D ATCBC #### [facility] [address] [place] [address] Dr. El Voss Hematocrit (Bld) [Volume fraction] 42.8 % Normal 36.0-48.0 [facility] Comment on above: Performed By: #### D ATCBC #### [facility] [address] [place] [address] Dr. El Voss Hemoglobin (Bld) [Mass/Vol] 13.8 g/dL Normal 12.0-16.0 [facility] Comment on above: Performed By: #### D ATCBC #### [facility] [address] [place] [address] Dr. El Voss IG # 0.01 10e3/ul Normal 0.00-0.03 [facility] Comment on above: Performed By: #### D ATCBC #### [facility] [address] [place] [address] Dr. El Voss IG % 0.2 % Normal 0.0-0.5 [facility] Comment on above: Performed By: #### D ATCBC #### [facility] [address] [place] [address] Dr. El Voss LYMPH # 1.9 103/ul Normal 1.2-3.8 [facility] Comment on above: Performed By: #### D ATCBC #### [facility] [address] [place] [address] Dr. El Voss Lymphocytes/100 WBC (Bld) 40.4 % Normal 20.5-60.0 [facility] Comment on above: Performed By: #### D ATCBC #### [facility] [address] [place] [address] Dr. El Voss MCH (RBC) [Entitic mass] 30.3 pg Normal 26.7-34.0 [facility] Comment on above: Performed By: #### D ATCBC #### [facility] [address] [place] [address] Dr. El Voss MCHC (RBC) [Mass/Vol] 32.2 g/dL Normal 29.9-35.2 [facility] Comment on above: Performed By: #### D ATCBC #### [facility] [address] [place] [address] Dr. El Voss MCV (RBC) [Entitic vol] 93.9 fL Normal 81.0-99.0 [facility] Comment on above: Performed By: #### D ATCBC #### [facility] [address] [place] [address] Dr. El Voss MONO # 0.4 103/ul Normal 0.3-0.8 [facility] Comment on above: Performed By: #### D ATCBC #### [facility] [address] [place] [address] Dr. El Voss Monocytes/100 WBC (Bld) 8.2 % Normal 1.7-12.0 [facility] Comment on above: Performed By: #### D ATCBC #### [facility] [address] [place] [address] Dr. El Voss NEUT # 2.2 103/ul Normal 1.4-6.5 [facility] Comment on above: Performed By: #### D ATCBC #### [facility] [address] [place] [address] Dr. El Voss Neutrophils/100 WBC (Bld) 47.5 % Normal 43.0-75.0 [facility] Comment on above: Performed By: #### D ATCBC #### [facility] [address] [place] [address] Dr. El Voss Platelet mean volume (Bld) [Entitic vol] 9.9 fL Normal 9.5-13.5 [facility] Comment on above: Performed By: #### D ATCBC #### [facility] [address] [place] [address] Dr. El Voss PLT 226 103/ul Normal 150-450 [facility] Comment on above: Performed By: #### D ATCBC #### [facility] [address] [place] [address] Dr. El Voss RBC 4.56 106/ul Normal 4.20-5.40 [facility] Comment on above: Performed By: #### D ATCBC #### [facility] [address] [place] [address] Dr. El Voss WBC 4.7 103/ul Normal 4.0-11.0 [facility] Comment on above: Performed By: #### D ATCBC #### [facility] [address] [place] [address] Dr. El Voss JONATAN - LIPID PROFILEon 2021 CHOL-HDL RATIO NORM SEE BELOW Normal [facility] Comment on above: Result Comment: 3.3 - 4.4 LOW RISK 4.4 - 7.1 AVERAGE RISK 7.1 - 11.0 MODERATE RISK >11.0 HIGH RISK Performed By: #### D ATLIPOmar DATBMP #### [facility] [address] [place] [address] Dr. lE Voss Cholesterol.total/Ch olesterol in HDL [Mass ratio] 3.5 {ratio} Normal [facility] Comment on above: Performed By: #### D ATLIPI, DATBMP #### [facility] [address] [place] [address] Dr. El Voss JONATAN- BMP WITH LIPIDon 2021 Anion gap [Moles/Vol] 13.6 mmol/L Normal [facility] Comment on above: Performed By: #### D ATLALTHEA DATBMP #### [facility] [address] [address] [address] El Voss Calcium [Mass/Vol] 9.0 mg/dL Normal 8.5-10.1 [facility] Comment on above: Performed By: #### D ATLIPI DATBMP #### [facility] [address] [address] [address] El Voss Chloride [Moles/Vol] 105 mmol/L Normal 98-107 [facility] Comment on above: Performed By: #### D SERGIO DATBMP #### [facility] [address] [place] [address] Dr. El Voss Cholesterol [Mass/Vol] 259 mg/dL Critically high <=200 [facility] Comment on above: Performed By: #### Kenneth HILL DATBMP #### [facility] [address] [place] [address] Dr. El Voss Cholesterol in HDL [Mass/Vol] 73 mg/dL Critically high 40-60 [facility] Comment on above: Performed By: #### D SERGIO DATBMP #### [facility] [address] [place] [address] Dr. El Voss Cholesterol in LDL [Mass/Vol] 174.0 mg/dL Normal [facility] Comment on above: Performed By: #### D SERGIO DATBMP #### [facility] [address] [place] [address] Dr. El Voss CO2 [Moles/Vol] 27.4 mmol/L Normal 21.0-32.0 [facility] Comment on above: Performed By: #### D ATLALTHEA DATBMP #### [facility] [address] [place] [address] Dr. El Voss Creatinine [Mass/Vol] 0.75 mg/dL Normal 0.55-1.02 [facility] Comment on above: Performed By: #### D ATLALTHEA DATBMP #### [facility] [address] [address] [address] El Voss EGFR-AF NIGERIAN >60 Normal >=60 [facility] Comment on above: Performed By: #### D SERGIO DATBMP #### [facility] [address] [address] [address] El Voss EGFR-NON AF NIGERIAN >60 Normal >=60 [facility] Comment on above: Performed By: #### D SERGIO DATBMP #### [facility] [address] [address] [address] El Voss Glucose [Mass/Vol] 110 mg/dL Critically high 74-106 [facility] Comment on above: Performed By: #### D SERGIO DATBMP #### [facility] [address] [place] [address] Dr. El Voss HDL NORMAL > or = 60 mg/dl - LO W CARDIOVASCULAR RISK <40 mg/dl - HIGH CARDIOVASCULAR RISK Normal [facility] Comment on above: Performed By: #### D SERGIO DATBMP #### [facility] [address] [place] [address] Dr. El Voss LDL CALC NORMAL SEE BELOW Normal [facility] Comment on above: Result Comment: <100 mg/dl OPTIMAL 100 - 129 mg/dl NEAR OR ABOVE OPTIMAL 130 - 159 mg/dl BORDERLINE HIGH 160 - 189 mg/dl HIGH >190 mg/dl VERY HIGH Performed By: #### D SERGIO DATBMP #### [facility] [address] [address] [address] El Voss Potassium [Moles/Vol] 4.0 mmol/L Normal 3.5-5.1 [facility] Comment on above: Performed By: #### D SERGIO DATBMP #### [facility] [address] [address] [address] El Voss Sodium [Moles/Vol] 142 mmol/L Normal 136-145 [facility] Comment on above: Performed By: #### D SERGIO DATBMP #### [facility] [address] [address] [address] El Voss Triglyceride [Mass/Vol] 60 mg/dL Normal <=150 [facility] Comment on above: Performed By: #### D KADEN HILLP #### [facility] [address] [place] [address] Dr. El Voss Urea nitrogen [Mass/Vol] 18.0 mg/dL Normal 7.0-18.0 [facility] Comment on above: Performed By: #### D JONATAN HILLBMP #### [facility] [address] [address] [address] El Voss Urea nitrogen/Creatinine [Mass ratio] 24.0 mg/mg Normal [facility] Comment on above: Performed By: #### D JONATAN HILLBMP #### [facility] [address] [place] [address] Dr. El Voss VLDL CALC 12.0 mg/dL Normal [facility] Comment on above: Performed By: #### KADEN GRAYSONP #### [facility] [address] [place] [address] Dr. El Voss GLYCOHEMOGLOBIN A1Con 2021 ADA RECOMMENDATION SEE BELOW Normal [facility] Comment on above: Result Comment: ADA RECOMMENDED LIMIT 4.0 - 6.0 ADA THERAPEUTIC TARGET < 7.0 ACTION SUGGESTED > 7.0 Performed By: #### D ATA1C #### [facility] [address] [place] [address] Dr. El Voss Glucose [Mass/Vol] 111 mg/dL Normal [facility] Comment on above: Performed By: #### D ATA1C #### [facility] [address] [place] [address] Dr. El Voss HbA1c (Bld) [Mass fraction] 5.5 % Normal 4.5-6.2 [facility] Comment on above: Performed By: #### D ATA1C #### [facility] [address] [place] [address] Dr. El Voss TSHon 03-01-2022 TSH 3.641 uIU/mL Normal 0.358-3.740 [facility] Comment on above: Performed By: #### T SH #### [facility] [address] [place], [place] [address] Dr. El Voss TSH RANGE SEE BELOW Normal [facility] Comment on above: Result Comment: <0.3 4 UIU/ml HYPERTHYROID 0.34-5.60 UIU/ml EUTHYROID >5.60 UIU/ml HYPOTHYROID Performed By: #### T SH #### [facility] [address] [address] [address] El Voss Vital Signs Date Time Vital Sign Value Performing Clinician Faci lity 05-21-2025 15:00-0400 Body height 162.6 cm Clementine Darron DO Work Phone: [facility] 05-21-2025 15:00-0400 Body mass index (BMI) [Ratio] 25.23 kg/m2 Clementine Darron DO Work Phone: [facility] 05-21-2025 15:00-0400 Body weight 66.68 kg Clementine Darron DO Work Phone: [facility] 05-21-2025 15:00-0400 Diastolic blood pressure 70 mm[Hg] Clementine Darron DO Work Phone: [facility] 05-21-2025 15:00-0400 Systolic blood pressure 116 mm[Hg] Clementine Darron DO Work Phone: [facility] 05-20-2024 14:34-0400 Body mass index (BMI) [Ratio] 25.6 kg/m2 Clementine Darron DO Work Phone: [facility] 05-20-2024 14:34-0400 Body weight 67.64 kg Clementine Darron DO Work Phone: [facility] 05-20-2024 14:34-0400 Diastolic blood pressure 70 mm[Hg] Clementine Darron DO Work Phone: [facility] [facility]-2024 14:34-0400 Systolic blood pressure 114 mm[Hg] Clementine Darron DO Work Phone: [facility] Encounters Encounter Date Encounter Type Care Provider Facility Start: 05-21-2025 End: 05-21-2025 Patient encounter procedure Clementine Darron DO Work Phone: [facility] Start: 05-21-2025 End: 05-21-2025 Periodic preventive med est patient 40-64yrs Clementine Darron DO Work Phone: [facility] Comment on above: Well woman exam with routine gynecological exam; Osteoporosis, post-menopausal ; H/O: hysterectomy Start: 05-21-2025 End: 05-21-2025 Bamboo flowsheet Clementine Darron DO Work Phone: [facility] Start: 05-21-2025 End: 05-21-2025 Bamboo flowsheet Clementine Darron DO Work Phone: [facility] Start: 03-12-2025 End: 03-12-2025 Clinisync Result Encounter Sylvia Yousif SERVICE ORDER DISPATCHER Work Phone: [facility] Unsolicited Start: 03-12-2025 End: 03-12-2025 Clinisync Result Encounter Sylvia Yousif SERVICE ORDER DISPATCHER Work Phone: [facility] Unsolicited Start: 03-03-2025 End: 03-03-2025 Clinisync Result Encounter Clementine Darron DO Work Phone: [facility] Unsolicited Start: 03-03-2025 End: 03-03-2025 Clinisync Result Encounter Clementine Darron DO Work Phone: [facility] Unsolicited Start: 02-25-2025 End: 02-25-2025 Orders Only Sylvia Yousif SERVICE ORDER DISPATCHER Work Phone: [facility] Comment on above: Encounter for wellne ss examination in adult (Primary Dx) Start: 02-25-2025 End: 02-25-2025 Patient encounter status Sylvia Yousif SERVICE ORDER DISPATCHER Work Phone: [facility] Work Phone: Start: 09-11-2024 End: 09-11-2024 Refill Fiordaliza Curry SERVICE ORDER DISPATCHER Work Phone: [facility] Comment on [...] abnormal findings DR SALVADOR REED . [facility] Start: 03-02-2022 End: 03-03-[address] SALVADOR REED . Facility:[facility] Start: 03-02-2022 End: 03-03-2022 Encounter for general adult medical examination without abnormal findings DR SALVADOR REED . Facility: Procedures Date Procedure Procedure Detail Performing Clinician Start: 03-12-2025 ALL CBC WITH AUTO DIFF Sylvia Nica SERVICE ORDER DISPATCHER Work Phone: Start: 03-03-2025 MM TOMOSYNTHESIS SCR EENING BI Clementine Darron DO Work Phone: Start: 05-20-2024 IGP,APTIMA HPV,AGE GDLN Generic External Data Provider Start: 05-20-2024 Microscopic observat ion [Identifier] in Cervix by Cyto stain Fiordaliza Curry SERVICE ORDER DISPATCHER Work Phone: Start: 02-29-2024 Mammography Clementine Fazi o DO Work Phone: H/O: hysterectomy H/O: hysterectomy Clementine Darron DO Work Phone: Plan of Treatment Date Care Activity Detail Author Start: 05-20-2027 Screening for malign ant neoplasm of cervix [facility] Start: 05-26-2026 End: 05-26-2026 Patient encounter procedure 05/26/2026 3:00 PM EDT Procedure Visit [facility] [address] [place] [address] Clementine Rob, DO [address] [place] [address] [facility] Start: 05-21-2025 End: 05-21-2025 Patient encounter procedure [facility] Comment on above: Arrived Start: 05-21-2025 End: 05-21-2026 DXA Skeletal system Views for bone density DEXA bone density Imaging Routine Osteoporosis, post-menopausal Expected: 05/21/2025 (Approximate), Expires: 05/21/2026 [facility] Work Phone: Comment on above: Expected: 05/21/2025 (Approximate), Expires: 05/21/2026 Start: 02-28-2025 Screening for malign ant neoplasm of breast Mammogram [facility] Start: 02-25-2025 End: 02-25-2026 CBC W Auto Differential panel - Blood CBC and differential Lab Routine Encounter for wellness examination in adult Expected: 02/25/2025 (Approximate), Expires: 02/25/2026 [facility] Work Phone: Comment on above: Expected: 02/25/2025 [...] in adult Expected: 02/25/2025 (Approximate), Expires: 02/25/2026 [facility] Comment on above: Expected: 02/25/2025 (Approximate), Expires: 02/25/2026 Start: 02-25-2025 End: 02-25-2026 Lipid 1996 panel - Serum or Plasma Lipid panel Lab Routine Encounter for wellness examination in adult Expected: 02/25/2025 (Approximate), Expires: 02/25/2026 [facility] Comment on above: Expected: 02/25/2025 (Approximate), Expires: 02/25/2026 Start: 02-25-2025 End: 02-25-2026 Thyrotropin [Units/volume] in Serum or Plasma TSH Lab Routine Encounter for wellness examination in adult Expected: 02/25/2025 (Approximate), Expires: 02/25/2026 [facility] Comment on above: Expected: 02/25/2025 (Approximate), Expires: 02/25/2026 Start: 10-07-2024 End: 10-07-2024 Patient encounter procedure 10/07/2024 2:30 PM EST Office Visit [facility] [address] [place] [address] Fiordaliza Curry NP [address] [place] [address] [facility] Start: 05-26-2024 Influenza vaccination Influenza Vacc ine (#1) [facility] Start: 05-20-2024 End: 05-20-2024 Patient encounter procedure 05/20/2024 2:00 PM EDT Office Visit [facility] [address] [place] [address] Clementine Rob, DO [address] [place] [address] Arrived [facility] Comment on above: Arrived Start: 1992 Screening for malign ant neoplasm of cervix [facility] Start: 1983 Screening for malign ant neoplasm of cervix Pap Smear [facility] Start: 1962 Screening for malign ant neoplasm of colon [facility] THIN PREP TIS PAP AN D HR HPV DNA THIN PREP TIS PAP AND HR HPV DNA Pathology and Cytology Routine Well woman exam with routine gynecological exam Ordered: 05/20/2024 [facility] Work Phone: Comment on above: Ordered: 05/20/2024 THIN PREP TIS PAP AN D HR HPV DNA THIN PREP TIS PAP AND HR HPV DNA Pathology and Cytology Routine Well woman exam with routine gynecological exam Ordered: 05/21/2025 [facility] Comment on above: Ordered: 05/21/2025 Immunizations Immunization Date Immunization Notes Care Provider Kieran aguayo 05-26-2016 influenza virus vacc ine, unspecified formulation Clementine Rob DO Work Phone: [facility] Payers Date Payer Category Payer [facility] BCBS [id number] 2022 Unknown BCBS BCBS [id number] 2022-Present [phone] [address] [place] [id number] 2022 Unknown [id number] 2019 Unknown [id number] 1962 Unknown [id number] 1962 Unknown [id number] 1962 Unknown [id number] 1962 Unknown [id number] 1962 Unknown [id number] 1962 Unknown [id number] Social History Date Type Detail Facility Start: 05-10-[address] [facility] Never smoked tobacco [facility] Start: 05-10-2023 Tobacco use and exposure Smokeless t obacco non-user [facility] Start: 05-15-2023 End: 05-21-2025 Alcoholic beverage intake Current drinker of alcohol (finding) [facility] Start: 05-15-2023 End: 05-21-2025 History of Social function [facility] Start: 05-15-2023 End: 05-21-2025 Tobacco use panel [facility] Start: 05-10-2023 Alcohol Comment Occasional Alcohol u se [facility] Start: 1960 Sex assigned at Female [facility] Start: 05-08-2023 Gender identity Identifies as female gender (finding) [facility] History of Present illness Narrative 05-21-2025 Alycia Schuler, [employer]ER - 05/21/2025 3:00 PM EDT Note Date & Type Note Facility 05-21-2025 History of Presen t illness Narrative Reason for Appointment: Patient ID: Oanh Fox is a 65 y.o. female who presents for Gynecologic Exam Patient presents today for Annual Exam. MEDICATIONS Current Outpatient Medications Medication Instructions B Shetxsn-Yqmcks-OF (BALANCED B COMPLEX PO) Cholecalciferol (D3 2000 [...] 11/2016 distal chervon - [facility] HYSTERECTOMY 06/2011 [place] KNEE SCOPE,ABRASN ARTHROPLASTY Right 09/14/2017 chondroplasty - Dr. Alcazar [place] KNEE SCOPE,SINGLE MENISECTOMY Right 09/14/2017 Dr. Alcazar [...] nursing note reviewed. Exam conducted with a bait tier present. Vitals: Estimated body mass index is 25.23 kg/m as calculated from the following: Height [...] them. Patient can also view results via [employer]. I reinforced importance of condom use for [...] by Alycia Schuler LPN on behalf of: Clementine Rob DO documented in this encounter [facility] History of Present illness Narrative 05-20-2024 Letitia Gallegos LPN - 05/20/2024 2:00 PM EDT Note Date & Type Note Facility 05-20-2024 History of Presen t illness Narrative Reason for Appointment: Patient ID: Oanh Fox is a 64 y.o. female who presents for Well Women Visit Patient presents today for Annual Exam. MEDICATIONS Current Outpatient Medications Medication Instructions B Kphjunk-Vhayzj-IM (BALANCED B COMPLEX PO) Cholecalciferol (D3 2000 [...] 11/2016 distal chervon - [facility] HYSTERECTOMY 06/2011 [place] KNEE SCOPE,ABRASN ARTHROPLASTY Right 09/14/2017 chondroplasty - Dr. Alcazar [place] KNEE SCOPE,SINGLE MENISECTOMY Right 09/14/2017 Dr. Alcazar [...] nursing note reviewed. Exam conducted with a bait tier present. Vitals: Estimated body mass index is 25.6 kg/m as calculated from the following: Height as of 04/02/19: 5' 4 . Weight as of this [...] Clementine Rob DO documented in this encounter [facility] Evaluation [...] Primary documented in this encounter [facility] Evaluation note Note Date & Type Note Facility Evaluation note Diagnosis Well woman exam with routine gynecological exam Routine gynecological examination Osteoporosis, post-menopausal Senile osteoporosis H/O: hysterectomy Acquired absence of both cervix and uterus documented in this encounter [facility] Summary Purpose Family History No Family History Records FoundNo Family History Records Found Advance Directives No Advanced Directives Records FoundNo Advanced Directives Records Found Additional Source Comments INFORMATION SOURCE (unrecogn ized section and content) DATE CREATED AUTHOR 02/06/2023 [facility] DATE CREATED AUTHOR AUTHOR'S ORGANIZ ATION 05/22/2024 [facility]IC Reason for Visit (unrecogniz ed section and content) Reason Onset Date Comments Med Refill 09/11/2024 Reason Comments Well Women Visit Reason Comments Gynecologic Exam Care Teams (unrecognized sec tion and content) Seed Expert Relationship Specialty Start Date End Date Shaikh Bateman MD [address] [place] [id number] PCP - General 05/08/23 Seed Expert Relationship Specialty Start Date End Date Shaikh Bateman MD [address] [place] [phone] PCP - General 05/08/23 Seed Expert Relationship Specialty Start Date End Date Shaikh Bateman MD [address] [place] [address] PCP - General 05/08/23 Seed Expert Relationship Specialty Start Date End Date Shaikh Bateman MD [address] [place] [id number] PCP - General 05/08/23 Seed Expert Relationship Specialty Start Date End Date Shaikh Bateman MD [address] [place] [phone] PCP - General 05/08/23 Seed Expert Relationship Specialty Start Date End Date Shaikh Bateman MD [address] [place] [phone] PCP - General 05/08/23 Seed Expert Relationship Specialty Start Date End Date Shaikh Bateman MD [address] [place] [phone] PCP - General 05/08/23 FOR RECORDS PERTAINING TO PATIENTS WHO [...] BE BASED ON THE PRIMARY CLINICAL RECORDS. [facility] [employer] [facility]. provides no warranty or guarantee of the accuracy or completeness of information in this document.
[2025-05-27 19:08] LABS: Age Gdln ACOG Testing Note (.); IGP, Aptima HPV, rfx 16/18,45 Note (.)
== END 2025-05-21 19:53 | disposition home or self-care (01) ==
LOC: LAB 19:52
PROVIDERS: PCP Nurse Practitioner; Visit Provider Obstetrics & Gynecology
DX: Z01.419 Encounter for gynecological examination (general) (routine) without abnormal findings (principal)
CPT/HCPCS: 87624; 88175